=== PATIENT | female | born 1980 ===

== ENCOUNTER 2018-01-22 14:57 | Outpatient (CLI) | payer OTHER ==
[~2018-01-22] VITALS: Ht 170.2 cm; Wt 81.5 kg
[2018-01-22] MEDS ORDERED: CLR10 PO (17:11)
[2018-01-22] MEDS ORDERED: CITA20TA9 PO (17:11)
[2018-01-22] MEDS ORDERED: RANI150T85 PO (17:11)
[2018-01-22] MEDS ORDERED: PEDICHW44 (17:11)
[2018-01-22] MEDS ORDERED: FLUT0.15 NAE (17:11)
[2018-01-22 17:42] VITALS: Ht 170.2 cm; Wt 81.5 kg
== END 2018-01-22 16:50 | disposition home or self-care (01) ==
LOC: C.OPB 14:57 → MERGE 14:57 → C.LD 14:58 → C.OPB 16:50
PROVIDERS: ATTEND Obstetrics & Gynecology
DX: O40.9XX0 Polyhydramnios, unspecified trimester, not applicable or unspecified (principal); Z3A.00 Weeks of gestation of pregnancy not specified

== ENCOUNTER 2018-02-16 12:30 | Inpatient (IN) | payer OTHER ==
[~2018-02-16] VITALS: Ht 170.2 cm; Wt 85.0 kg
[~2018-02-16 12:30] MED LIST: CITA20TA9 PO; CLR10 PO; FLUT0.15 NAE; PEDICHW44; RANI150T85 PO
[2018-02-16] MEDS ORDERED: LACTATED RINGER'S 1000ML 500 ML IV ONE (12:56)
[2018-02-16 13:17] LABS: BASO % 0.3 %; BASO ABS # 0.03 K/uL (0-0.2); EOS % 1.5 %; EOS ABS # 0.15 K/uL (0-0.5); HEMATOCRIT 32.8 % (37-47); HEMOGLOBIN 11.6 g/dL (12.0-16.0); IG# 0.08 K/uL (0.00-0.02); LYMPH % 11.8 %; LYMPH ABS # 1.19 K/uL (1.2-3.4); MEAN CORPUSCULAR HEMOGLOBIN 30.8 pg (25-34); MEAN CORPUSCULAR HGB CONC 35.4 g/dl (32-36); MEAN PLATELET VOLUME 10.3 fL (7.4-10.4); MONO % 3.5 %; MONO ABS # 0.35 K/uL (0.11-0.59); NEUT % 82.1 %; NEUT ABS # 8.26 K/uL (1.4-6.5); PLATELET COUNT 240 K/uL (130-400); RED CELL DISTRIBUTION WIDTH CV 14.1 % (11.5-14.5); WHITE BLOOD COUNT 10.06 K/uL (4.8-10.8)
[2018-02-16] MEDS ORDERED: LACTATED RINGER'S 1000ML 500 ML IV PRN ×2 (13:52→23:31)
[2018-02-16] MEDS ORDERED: OXYTOCIN 30 UNITS/500ML NSS IV PRN (14:00)
[2018-02-16 14:14] VITALS: Ht 170.2 cm; Wt 85.0 kg
[2018-02-16 14:22] LABS: HEMATOCRIT 32.9 % (37-47); HEMOGLOBIN 11.1 g/dL (12.0-16.0); MEAN CELL VOLUME 87.5 fL (80-100); MEAN CORPUSCULAR HEMOGLOBIN 29.5 pg (25-34); MEAN CORPUSCULAR HGB CONC 33.7 g/dl (32-36); MEAN PLATELET VOLUME 10.4 fL (7.4-10.4); PLATELET COUNT 247 K/uL (130-400); RED CELL DISTRIBUTION WIDTH CV 14.2 % (11.5-14.5); RED CELL DISTRIBUTION WIDTH SD 45.5 fL (36.4-46.3); WHITE BLOOD COUNT 9.29 K/uL (4.8-10.8)
[2018-02-16] MEDS ORDERED: PENICILLIN G POTASSIUM IV 3 MU in DEXTROSE 5% 100ML 100 ML IV PRN (14:30)
--- NOTE | 2018-02-16 14:41 | HISTORY & PHYSICAL EXAMINATION ---
DATE OF ADMISSION: 02/16/2018 LABOR AND DELIVERY ADMISSION NOTE CHIEF COMPLAINT: Sent from office for nonreactive NST and heart rate deceleration. HISTORY OF PRESENT ILLNESS: The patient is a 37-year-old G1, P0 at 39 weeks and 1 day of gestation, whose has been complicated by polyhydramnios and abnormal echocardiogram with ductal flow turbulence and possible mild narrowing of distal transverse aorta. She saw MFM and pediatric nephrologist and plan was made for IOL by [facility]. Peds cardiology was okay for induction/ delivery of the baby here at [facility]. She has been coming to the office for NST's 2 times a week and RUSLAN once a week. Her RUSLAN has been on the higher range between 27 and 30 and her NSTs have been reactive. Today, she presented to the office for a scheduled NST and RUSLAN. Her RUSLAN dropped from 28 cm last week to 18cm this past Tuesday on February 13 and today 13 cm. She was placed on the NST. NST showed a nonreactive heart rate with 1 variable deceleration. She then was sent to ultrasound department, a BPP was done with an 8/8 score, but photographic reproduction technician showed heart rate decelerations during performing ultrasound, and I was not notified and recommended to come to labor and delivery for prolonged NST. She denies leakage of fluid. She does not remember leaking recently. She had speculum exam in the office. Her Nitrazine paper testing was negative. AmniSure testing was negative and there was no ferning on the slide, unlikely that she was leaking. She was sent here for prolonged NST. She was placed on the monitor. heart rate started with a baseline of 150 with minimal to moderate variability and then she had a good acceleration. She then had a 3 minute contraction and a deceleration from 160-120s, 130s for about 2 minutes, it recovered. heart rate became to be tachycardic at 160s to 170s with minimal variability and then we started IV fluid hydration. The variability came back, she has now moderate variability with accelerations and very short lasting viable decel. Discussed with the patient that baby is full-term and with this heart rate decelerations, we recommended to do another testing for the wellbeing, which is called oxytocin challenge test. If the baby passes oxytocin challenge test with 3 contractions in 10 min and no decelerations, then to be continued with induction. If baby fails the oxytocin challenge test with recurrent decelerations, then recommend expedited delivery with . The patient understands and agrees with plan. The patient has no complaints today. Denies contractions, leakage of fluid, or vaginal bleeding. She reports good movements. She denies fever, chills, chest pain, shortness of breath, headache, change in her vision, nausea, vomiting or leg pain. PAST MEDICAL HISTORY: As above and vitamin D deficiency, depression. Medication exposure during her . PAST SURGICAL HISTORY: Dental surgery. MEDICATIONS: vitamins, Celexa 20 mg daily, Claritin 10 mg daily, Flonase nasal spray as needed, albuterol inhaler as needed and Zantac 150 daily. GYNECOLOGIC HISTORY: The patient denies any history of STDs including Chlamydia, gonorrhea, herpes; this is her first . 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 She lives with her . She does not smoke, drink alcohol nor use drugs. LABORATORY DATA: Her chlamydia and gonorrhea cultures were negative. Blood type is A positive. H&H was 13/40. Varicella immune, rubella immune, hepatitis C antibody negative, hepatitis B surface antigen negative, RPR nonreactive, HIV nonreactive and her Ethel testing with low risk. Her 1-hour Glucola was negative and 3-hour OGGT were negative and her GBS culture was positive on 01/24/2018. PHYSICAL EXAMINATION: GENERAL: The patient is alert, oriented x3, not in acute distress. She is comfortable. VITAL SIGNS: Blood pressure is 126/79, heart rate 83, respirations 20, temperature 36.7. CARDIOVASCULAR SYSTEM: S1, S2, RRR. LUNGS: Clear to auscultation bilaterally. ABDOMEN: Soft, gravid, nontender. EXTREMITIES: Nontender, no edema. PELVIC: Cervix is 1 cm dilated, 30% effaced, minus 3. scalp stimulation was done with about 10 bpm acceleration in the heart rate. ASSESSMENT AND PLAN: The patient is a 37-year-old G1, P0 at 39 weeks and 1 day of gestation by last menstrual period as well as first trimester ultrasound and polyhydramnios since 29 weeks and GBS positive. Questionable mild heart defect followed by Dr. Dela Cruz. Nonreactive non-stress test with decelerations in the office and here today, recommended oxytocin challenge test and induction of labor if OCT is negative. The patient understands induction may take a day or two. If the baby fails the test, she may need emergency section. According to the pediatric nephrologist, Dr. Dela Cruz, the patient may be delivered here and post- echocardiogram can be done in 24 hours. I informed the training project manager operation research analyst, Dr. Rodriguez today and he is aware of. Plan is to admit, start IV fluids and low dose oxytocin for oxytocin challenge test and then induction of labor if OCT is negative as above Continuously monitor. Patient understands and agrees with plan All questions were answered. FLORA
[2018-02-16] MEDS ORDERED: PENICILLIN G POTASSIUM IV 6 MU in DEXTROSE 5% 250ML 250 ML IV ONE (14:45)
[2018-02-16] MEDS: LACTATED RINGER'S 1000ML 1,000 ML IV SCH ×2 (15:06→17:15)
[2018-02-16] MEDS ORDERED: LACTATED RINGER'S 1000ML 1,000 ML IV ONE (20:55)
[2018-02-16] MEDS ORDERED: CITRIC ACID/SODIUM CITRATE 15 ML UDC PO ONE (21:00)
[2018-02-16] MEDS ORDERED: CEFAZOLIN IV 2,000 MG in SYRINGE 0 ML IV STA (21:04)
[2018-02-16] MEDS ORDERED: MoRPHine SULFATE PF 1 MG/ML 10 ML AMP/VIAL ONE (21:56)
[2018-02-16] MEDS ORDERED: FENTANYL CITRATE INJ 50 MCG/1 ML 2 ML VIAL ONE (21:56)
[2018-02-16] MEDS ORDERED: ONDANSETRON INJ 2 MG/ML 2 ML VIAL ONE (22:36)
[2018-02-16] MEDS ORDERED: OXYTOCIN INJ 10 UNITS/ML VIAL ONE ×3 (22:36→22:52)
[2018-02-16] MEDS ORDERED: D5W AND LACTATED RINGERS 1,000 ML IV SCH (23:21)
[2018-02-16] MEDS ORDERED: OXYTOCIN INJ 20 UNITS in D5W AND LACTATED RINGERS 1,000 ML IV SCH (23:21)
--- NOTE | 2018-02-16 23:21 | [facility] Post Operative Brief Note ---
Immediate Operative Summary Operative Date Feb 16, 2018. Pre-Operative Diagnosis IUP at 39w1d Non reactive NST Recurrent heart rate decelerations. Meconium stained fluid. Remote from delivery. Post-Operative Diagnosis Same as above. Procedure(s) Performed Primary caesarean section. Delivery of live female child at [address]. Surgeon Dr[address] Goldsmith Jig And Fixture Builder Apprentice Surgeon(s) Nayeli Alcazar RN Estimated Blood Loss 600cc Findings Consistent with Post-Op Diagnosis Fluids (cc crystalloids) 1500 ML LR Specimens A: Placenta-exam B: Cord gasses Drains RODRIGUEZ 100 ML Anesthesia Type Spinal Complication(s) none Disposition Disposition: L&D
[2018-02-16] MEDS ORDERED: LANOLIN OINT EXT PRN (23:30)
[2018-02-16] MEDS ORDERED: HYDROCORTISONE ACETATE 25 MG SUPP PR PRN (23:30)
[2018-02-16] MEDS ORDERED: BENZOCAINE 20% AER SPR 82.5 GM CAN EXT PRN (23:30)
[2018-02-16] MEDS ORDERED: SENNA 8.6 MG TAB PO PRN (23:30)
[2018-02-16] MEDS ORDERED: MAGNESIUM HYDROXIDE SUSP 30 ML UDC PO PRN (23:30)
[2018-02-16] MEDS ORDERED: SUPERCREAM 0.870 % 15GM JAR EXT PRN (23:30)
[2018-02-16] MEDS ORDERED: NALOXONE HCL INJ 0.08 MG in SYRINGE 1.8 ML IV PRN (23:31)
[2018-02-16] MEDS ORDERED: NALOXONE HCL INJ 1 MG in SODIUM CHLORIDE 0.9% 1000ML 1,000 ML IV PRN (23:31)
[2018-02-16] MEDS ORDERED: SODIUM CHLORIDE 0.9% 1000ML 1,000 ML IV PRN (23:31)
--- NOTE | 2018-02-16 23:35 | Anesthesiology Progress Note ---
Anesthesia Post Op Note Date & Time Feb 16, 2018 at 23:35 Notes Mental Status: alert / awake / arousable, participated in evaluation Pt Amnestic to Procedure: Yes Nausea / Vomiting: adequately controlled Pain: adequately controlled Airway Patency, RR, SpO2: stable & adequate BP & HR: stable & adequate Hydration State: stable & adequate Neuraxial Anesthesia: was administered, sensory block is resolving Anesthetic Complications: no major complications apparent
[2018-02-16] MEDS ORDERED: NALBUPHINE HCL INJ 10 MG/ML AMP IV PRN (23:45)
[2018-02-16] MEDS ORDERED: DiphenhydrAMINE HCL 50 MG/ML VIAL IV PRN (23:45)
[2018-02-16] MEDS ORDERED: ONDANSETRON INJ 2 MG/ML 2 ML VIAL IV PRN (23:45)
[2018-02-16] MEDS ORDERED: MoRPHine SULFATE 2 MG/ML CARP IV PRN (23:45)
[2018-02-16] MEDS ORDERED: MoRPHine SULFATE PF 1 MG/ML 10 ML AMP/VIAL INT SPINAL PRN (23:45)
[2018-02-16] MEDS ORDERED: NALOXONE HCL 0.4 MG/1 ML VIAL/CARP IV PRN (23:45)
[2018-02-16] MEDS ORDERED: NO NARCOTICS OR SEDATIVES SCH (23:45)
--- NOTE | 2018-02-16 23:51 | OPERATIVE REPORT ---
DATE OF OPERATION: 02/16/2018 PREOPERATIVE DIAGNOSES: 1. The patient is a 37-year-old G1, P0 at 39 weeks and 1 day of gestation. 2. Nonreactive NST with heart rate deceleration, intolerance to labor with recurrent decelerations. 3. Category 3 strip, remote from delivery. 4. Dark meconium stained amniotic fluid. POSTOPERATIVE DIAGNOSIS: Same. PROCEDURE: Primary low transverse with Pfannenstiel skin incision. SURGEON: Gissel Norris MD. STEAM FRAME OPERATOR: Nayeli Alcazar RN. She is a labor and delivery nurse. ESTIMATED BLOOD LOSS: 600. FLUIDS: 1500 mL of lactated ringer. DRAINS: Urine 100 mL of urine in the [place] catheter. ANESTHESIA: Spinal, Dr. Greer. COMPLICATIONS: None. SPECIMENS: Placenta and cord gases. FINDINGS: Baby was in cephalic presentation not engaged to the pelvis, delivered at 22:31 p.m., viable female , weight 3925 grams. Apgars 5, 8 and 9 at one, five and ten minutes in order. Maternal findings; normal uterus, fallopian tubes and ovaries. Meconium stained placenta and amniotic fluid. DESCRIPTION OF PROCEDURE: The patient was taken to the operating room where spinal anesthesia was given without difficulty. She was placed in dorsal supine position with a leftward tilt. She was prepared and draped in usual sterile fashion. A Pfannenstiel skin incision was made and carried through to the underlying layer of fascia with the Bovie. The fascia was incised in the midline and incision extended laterally with the help of Morel scissors. Lower aspect of the fascial incision was grasped with 2 Aria clamps, elevated, underlying rectus muscles were dissected off sharply with Metzenbaum scissors and upper aspect of the facial incision was grasped with 2 Aria clamps, elevated, underlying rectus muscles were dissected off sharply with Morel scissors. Rectus muscles were in the midline and the peritoneum was identified, entered bluntly with fingers. Peritoneal incision was extended superiorly and inferiorly. I attest to the content of the Intraoperative Record and any orders documented therein. Any exception s are noted below.
[2018-02-17] VITALS (20 sets, daily range): BP systolic 107–134; BP diastolic 71–86; PULSE 70–87; TEMP 36.6–36.8; O2SAT 95–99
--- NOTE | 2018-02-17 00:10 | OPERATIVE REPORT ---
DATE OF OPERATION: 02/16/2018 PREOPERATIVE DIAGNOSES: The patient is a 37-year-old G1, P0 at 39 weeks and 1 day of gestation who was sent from office for nonreactive NST and heart rate deceleration. Induction of labor at term. Category II heart strip Dark meconium stained amniotic fluid Remote from delivery. POSTOPERATIVE DIAGNOSES: Same. PROCEDURE: Primary low transverse with Pfannenstiel skin incision. SURGEON: Gissel Norris MD. CLERICAL SECRETARY: Nayeli Alcazar RN, Labor and delivery nurse. ESTIMATED BLOOD LOSS: 600. FLUIDS: 1500 mL of lactated ringer. DRAINS: [place] drained 100 mL of urine. COMPLICATIONS: None. ANESTHESIA: Spinal, Dr. Mckeon. FINDINGS: Baby was a viable female , in cephalic presentation, delivered at 22:31 p.m. Weight 3925 grams. Apgars 5, 8, 9 at one, five and ten minutes respectively. Dark meconium stained amniotic fluid and placenta. Maternal findings; normal uterus, fallopian tubes and ovaries. DESCRIPTION OF PROCEDURE: The patient was taken to the operating room where spinal anesthesia was given without difficulty. She was placed in dorsal supine position with a leftward tilt. She was prepared and draped in usual sterile fashion. A Pfannenstiel skin incision was made, carried through to the underlying layer of fascia with the Bovie. The fascia was incised in the midline and incision extended laterally with the help of Morel scissors. Lower aspect of the fascial incision was grasped with 2 Aria clamps, elevated, the underlying rectus muscles and dissected sharply with Morel scissors. Upper aspect of the fascial incision was then grasped with 2 Aria clamps, elevated, underlying rectus muscles were dissected off sharply with Morel scissors. Rectus muscles were in the midline. Peritoneum was identified, entered bluntly with the fingers and peritoneal incision was extended superiorly and inferiorly with good visualization of the bladder. Bladder blade was inserted. Vesicouterine peritoneum was identified, grasped with pickups, entered sharply with Metzenbaum scissors. Bladder flap was created digitally and bladder blade was reinserted. Lower uterine segment was incised in transverse fashion, incision extended laterally with the help of fingers. Membranes were ruptured and dark meconium stained amniotic fluid was obtained. The baby's head was ballottable not engaged to the pelvis. It was brought to the incision and delivered without difficulty. Shoulders were delivered with minimal traction. Mouth and nose were suctioned. Cord was clamped x2 and cut. Baby was handed to the waiting cyber special agent. The cord blood was collected for donation per patient request and a piece of cord was sent for cord blood gases. The placenta was and delivered manually as intact and complete. Uterus was exteriorized, cleared of all clots and debris. Incision was repaired with 0 Vicryl in a running locked fashion and second imbricating layer was placed with a 0 Vicryl in a running locked fashion. Excellent hemostasis was achieved. The cul-de-sac was irrigated with warm normal saline and suctioned. Uterus was returned to the abdomen and pelvis was irrigated with warm normal saline and suctioned. There was a small oozing in the middle of the incision which was controlled with [id number] stitch x2 and then it was irrigated again and suctioned. Excellent hemostasis was achieved. Parietal peritoneum was reapproximated with 3-0 Vicryl in a running fashion. Rectus muscles were reapproximated with the same suture in a running fashion. The rectal fascia was closed with 0 Vicryl in a running fashion. Subcuticular fat tissue was brought together with 3-0 Vicryl in a running fashion. Skin was closed with 4-0 Monocryl in a subcuticular fashion and the incision was covered with Steri-Strips. The patient tolerated the procedure well. Sponge, lap, needle count was correct x3. No complications happened. I was present during whole procedure and patient received 2 grams of cefazolin before surgery. She was taken to recovery room in stable condition. I attest to the content of the Intraoperative Record and any orders documented therein. Any exceptions are noted below. ROSEANND
[2018-02-17] MEDS: ACETAMINOPHEN IV 100 ML IV PRN ×2 (00:36→10:04)
[2018-02-17] MEDS: OXYTOCIN INJ 20 UNITS in LACTATED RINGER'S 1000ML 1,000 ML IV SCH ×2 (03:54→16:10)
[2018-02-17 06:27] LABS: HEMOGLOBIN 9.2 g/dL (12.0-16.0); MEAN CELL VOLUME 87.9 fL (80-100); MEAN CORPUSCULAR HGB CONC 34.1 g/dl (32-36); MEAN PLATELET VOLUME 10.1 fL (7.4-10.4); PLATELET COUNT 205 K/uL (130-400); RED CELL DISTRIBUTION WIDTH CV 14.1 % (11.5-14.5); RED CELL DISTRIBUTION WIDTH SD 45.1 fL (36.4-46.3); WHITE BLOOD COUNT 12.45 K/uL (4.8-10.8)
[2018-02-17 07:03] LABS: BASO % 0.2 %; BASO ABS # 0.03 K/uL (0-0.2); EOS % 0.4 %; EOS ABS # 0.05 K/uL (0-0.5); IG# 0.05 K/uL (0.00-0.02); LYMPH % 8.3 %; LYMPH ABS # 1.03 K/uL (1.2-3.4); MONO % 4.8 %; NEUT % 85.9 %; NEUT ABS # 10.69 K/uL (1.4-6.5)
[2018-02-17] MEDS: DOCUSATE SODIUM 100 MG CAP PO SCH ×2 (08:39→19:54)
[2018-02-17] MEDS: PRENATAL VITAMIN TAB PO SCH (08:40)
[2018-02-17] MEDS: SIMETHICONE 80 MG CHEW PO SCH ×4 (08:40→19:54)
[2018-02-17] MEDS: FERROUS SULFATE 325 MG TAB PO SCH (08:40)
--- NOTE | 2018-02-17 09:28 | OB/GYN Progress Note ---
THORACIC MEDICINE PHYSICIAN Progress Note Date of Service Feb 17, 2018. Subjective conversation w/ patient, physical exam Ambulation: limited ambulation Voiding: dillon catheter in place Passing Gas: No Diet Tolerance: Clear Liquids Lochia: Small Feeding Type: Breast Feeding Pain: 2/10 Notes: Doing well, no concerns. Pain well controlled. Tolerating liquids, -flatus, - BM. Dillon in place draining 400 cc clear urine. Incision dressing removed and is c/d/i. Objective Vital Signs Date Time Temp Pulse Resp B/P (MAP) Pulse Ox O2 Delivery O2 Flow Rate FiO2 02/17/18 09:00 20 98 02/17/18 08:00 18 99 02/17/18 08:00 36.7 76 18 127/83 (98) 99 Room Air 02/17/18 08:00 99 Room Air 02/17/18 07:00 16 95 02/17/18 06:30 16 98 02/17/18 05:30 16 97 02/17/18 04:30 16 98 02/17/18 03:50 36.7 83 16 130/84 (99) 96 Room Air 02/17/18 03:30 16 98 02/17/18 02:30 16 98 02/17/18 02:20 36.6 76 18 129/84 (99) 98 Room Air 02/17/18 02:20 98 Room Air Physical Exam General Appearance: WELL-APPEARING Respiratory/Chest: chest non-tender, lungs clear Cardiovascular: regular rate, rhythm Abdomen: normal bowel sounds, soft Fundus: Firm Incision Description: Clean, Dry & Intact Extremities: normal range of motion, non-tender, no calf tenderness Laboratory Results Last 24 Hours Test 02/16/18 13:02 02/16/18 14:02 02/17/18 06:11 White Blood Count 10.06 K/uL 9.29 K/uL 12.45 K/uL Red Blood Count 3.77 M/uL 3.76 M/uL 3.07 M/uL Hemoglobin 11.6 g/dL 11.1 g/dL 9.2 g/dL Hematocrit 32.8 % 32.9 % 27.0 % Mean Corpuscular Volume 87.0 fL 87.5 fL 87.9 fL Mean Corpuscular Hemoglobin 30.8 pg 29.5 pg 30.0 pg Mean Corpuscular Hemoglobin Concent 35.4 g/dl 33.7 g/dl 34.1 g/dl Platelet Count 240 K/uL 247 K/uL 205 K/uL Mean Platelet Volume 10.3 fL 10.4 fL 10.1 fL Neutrophils (%) (Auto) 82.1 % 85.9 % Lymphocytes (%) (Auto) 11.8 % 8.3 % Monocytes (%) (Auto) 3.5 % 4.8 % Eosinophils (%) (Auto) 1.5 % 0.4 % Basophils (%) (Auto) 0.3 % 0.2 % Neutrophils # (Auto) 8.26 K/uL 10.69 K/uL Lymphocytes # (Auto) 1.19 K/uL 1.03 K/uL Monocytes # (Auto) 0.35 K/uL 0.60 K/uL Eosinophils # (Auto) 0.15 K/uL 0.05 K/uL Basophils # (Auto) 0.03 K/uL 0.03 K/uL RDW Standard Deviation 45.0 fL 45.5 fL 45.1 fL RDW Coefficient of Variation 14.1 % 14.2 % 14.1 % Immature Granulocyte % (Auto) 0.8 % 0.4 % Immature Granulocyte # (Auto) 0.08 K/uL 0.05 K/uL Assessment and Plan Post-Op Day Number: 1 Continue Routine Care: -D/C santana today -Advance diet and activity as tolerated. -Continue routine postop care.
[2018-02-17] MEDS: LORATADINE 10 MG TAB PO SCH (15:05)
[2018-02-17] MEDS: CITALOPRAM 20 MG TAB PO SCH (15:05)
[2018-02-17] MEDS ORDERED: OXYCODONE/ACETAMINOPHEN 5-325 TAB PO PRN (16:10)
[2018-02-17] MEDS ORDERED: DC INTRASPINAL MORPHINE SCH (16:10)
[2018-02-17] MEDS ORDERED: MEPERIDINE HCL 50 MG/ML CARP IV PRN ×2 (16:10)
[2018-02-17] MEDS ORDERED: ONDANSETRON INJ 2 MG/ML 2 ML VIAL IV PRN (16:10)
[2018-02-17] MEDS ORDERED: DiphenhydrAMINE HCL 50 MG/ML VIAL IV PRN (16:10)
[2018-02-17] MEDS ORDERED: PROMETHAZINE HCL INJ 25 MG in SODIUM CHLORIDE 0.9% 50ML 50 ML IV PRN (16:10)
[2018-02-17] MEDS: OXYCODONE/ACETAMINOPHEN 5-325 TAB PO PRN ×2 (16:47→22:38)
[2018-02-17] MEDS ORDERED: BISACODYL 5 MG TABEC PO ONE (22:00)
[2018-02-18] MEDS: OXYCODONE/ACETAMINOPHEN 5-325 TAB PO PRN ×3 (06:15→22:14)
[2018-02-18 06:19] LABS: HEMATOCRIT 25.8 % (37-47); HEMOGLOBIN 8.9 g/dL (12.0-16.0)
[2018-02-18 08:20] VITALS: BP 121/79; PULSE 86; TEMP 36.8; O2SAT 95
[2018-02-18] MEDS: FERROUS SULFATE 325 MG TAB PO SCH (08:37)
[2018-02-18] MEDS: DOCUSATE SODIUM 100 MG CAP PO SCH ×2 (08:37→19:51)
[2018-02-18] MEDS: SIMETHICONE 80 MG CHEW PO SCH ×4 (08:38→19:51)
[2018-02-18] MEDS: PRENATAL VITAMIN TAB PO SCH (08:38)
[2018-02-18] MEDS: CITALOPRAM 20 MG TAB PO SCH (08:39)
[2018-02-18] MEDS: RANITIDINE HCL 150 MG TAB PO SCH (08:39)
[2018-02-18] MEDS ORDERED: DIPHTHERIA/TETANUS/PERTUSSIS 0.5 ML SYR/VIAL IM. ONE (09:00)
[2018-02-18] MEDS ORDERED: MEASLES, MUMPS & RUBELLA VIRUS VIAL SQ. ONE (09:00)
--- NOTE | 2018-02-18 10:32 | Surgery Progress Note ---
Surgery Progress Note Date of Service Feb 18, 2018. Subjective Post OP Day: 2 + chest pain, + ambulating, + flatus, + pain controlled Objective Vital Signs: Date Time Temp Pulse Resp B/P (MAP) Pulse Ox O2 Delivery O2 Flow Rate FiO2 02/18/18 08:20 95 Room Air 02/18/18 08:20 36.8 86 18 121/79 (93) 95 Room Air 02/17/18 23:05 98 Room Air 02/17/18 23:05 36.8 87 20 134/86 (102) 98 Room Air 02/17/18 20:00 36.8 86 18 114/75 (88) 96 Room Air 02/17/18 16:00 98 Room Air 02/17/18 16:00 16 98 02/17/18 16:00 36.7 70 20 107/71 (83) 98 Room Air 02/17/18 15:00 20 98 02/17/18 14:00 20 98 02/17/18 13:00 18 98 02/17/18 12:00 18 98 02/17/18 11:15 36.8 74 16 125/80 (95) 98 Room Air 02/17/18 11:00 16 98 General Appearance: no apparent distress Abdomen: non tender, non distended Incision(s): clean, dry Extremities: non-tender, normal inspection, no pedal edema Laboratory Results: Results Past 24 Hours Test 02/18/18 05:58 Range/Units Hemoglobin 8.9 12.0-16.0 g/dL Hematocrit 25.8 37-47 % Assessment & Plan regular diet tent D/C in AM
[2018-02-18 17:05] VITALS: BP 114/74; PULSE 81; TEMP 36.9; O2SAT 96
[2018-02-18 19:50] VITALS: BP 122/83; PULSE 84; TEMP 36.9; O2SAT 99
[2018-02-18 23:30] VITALS: BP 130/85; PULSE 84; TEMP 36.8; O2SAT 95
[2018-02-18] MEDS ORDERED: BISACODYL 10 MG SUPP PR PRN (23:30)
[2018-02-19] MEDS: OXYCODONE/ACETAMINOPHEN 5-325 TAB PO PRN ×3 (03:24→14:17)
[2018-02-19 07:30] VITALS: BP 131/83; PULSE 88; TEMP 36.8; O2SAT 96
[2018-02-19] MEDS: PRENATAL VITAMIN TAB PO SCH (07:57)
[2018-02-19] MEDS: RANITIDINE HCL 150 MG TAB PO SCH (07:57)
[2018-02-19] MEDS: FERROUS SULFATE 325 MG TAB PO SCH (07:58)
[2018-02-19] MEDS: SIMETHICONE 80 MG CHEW PO SCH ×2 (07:58→12:29)
[2018-02-19] MEDS: DOCUSATE SODIUM 100 MG CAP PO SCH (07:58)
[2018-02-19] MEDS: LORATADINE 10 MG TAB PO SCH (07:58)
[2018-02-19] MEDS: CITALOPRAM 20 MG TAB PO SCH (07:58)
[2018-02-19] MEDS ORDERED: OXYC-57 PO (09:19)
--- NOTE | 2018-02-19 09:21 | Discharge Instructions ---
Discharge Instructions Date of Service Feb 19, 2018. Admission Reason for Admission: Extended Monitoring Discharge Discharge Diagnosis / Problem: term delivered Discharge Goals Goal(s): Routine recovery after Activity Recommendations Activity Limitations: as noted below Lifting Limitations: no more than 10 pounds Exercise/Sports Limitations: gradually increase as tolerated May Resume Sexual Activity: after follow-up appointment Shower/Bathe: no limitations Driving or Machine Use: resume 3 days after discharge . Instructions / Follow-Up Instructions / Follow-Up ACTIVITY RECOMMENDATIONS: * Gradual return to full activity over the next 2-3 weeks. * No lifting - nothing heavier than baby over the next 2-3 weeks. * Do not engage in vigorous exercise, sexual activity or sports until cleared by your physician. * Do not drive or operate any motorized equipment until cleared by your physician. * You may shower/bathe daily. BREAST CARE: If you are not breast feeding: * Wear a supportive bra 24 hours a day for one to two weeks. * Avoid stimulating your breasts and nipples as much as possible during the first few weeks after delivery. * When taking a shower, have the warm water hit your back, not breasts. * When your breasts feel full, apply ice packs. Usually three to four times a day helps ease the discomfort. * Take a mild pain medication (Tylenol/Motrin) when you are uncomfortable. If breast feeding: * Use breast milk to lubricate nipples. Lansinoh cream may be used for sore nipples. You do not need to remove cream prior to breast feeding. If using a different brand of cream, check the label for directions regarding removal of cream prior to nursing. * Wear a supportive bra. * If having problems with breasts or breast feeding, call a solutions delivery consultant or your health care provider. OVER THE COUNTER MEDICATION: * For discomfort or pain, you may use Acetaminophen (Tylenol), Ibuprofen (Advil ), or Naproxen (Aleve) following the package directions. * For constipation you may use Colace following the package directions. SPECIAL CARE INSTRUCTIONS: When you are discharged from the hospital, it is important for you to follow the instructions listed below: * During the first week at home, you should be able to care for yourself and your baby. In addition, the usual light household activities are encouraged. * Limit your activities to the way you feel. Do not try to clean the house or move furniture. Be sensible. * If you actively engage in sports and have done so up until the time of your delivery, you may resume these activities as soon as you feel able. This may take up to one month or even longer. Use good judgment. * Continue to take your vitamins for at least six weeks after the of your baby. * Your diet need not be limited unless you were on a special diet before your delivery. Breast-feeding mothers need around 2500 calories per day and at least 64-80 ounces of fluid per day (8 to 10 glasses). * You should eat foods from the four major food groups. Crash diets or fad diets are to be avoided. Eating lean meats, fresh fruits and vegetables, low-fat dairy products, high fiber foods and a regular exercise program, will help you get back to your pre- weight without putting your health at risk. * Constipation is sometimes a problem after delivery. Take a mild laxative as needed. If breast feeding, Milk of Magnesia is acceptable to use. You may use a suppository or Fleets enema if no episiotomy. * A daily shower or tub bath is suggested. Be sure to thoroughly and gently dry the perineum. * A bloody vaginal discharge will usually continue until around four weeks post . A small amount of bleeding may continue for as long as six weeks. Vaginal discharge changes from the bright red bleeding after delivery to pink then brownish and finally yellowish-pink before becoming white and disappearing. * Bleeding may increase with activity. Your first period may come in 4-8 weeks. If you are breast feeding, your period may be delayed even longer. * Hugo (sex) can begin whenever both you and your partner feel comfortable and do not have any form of genital infection. It is recommended that you wait at least six weeks for internal and external healing to occur. If you have questions, please talk to your health care practitioner. A condom should be used to prevent infection and . * Foreplay, gentle intercourse and lubrication is very important the first several times to prevent pain. A water-based lubricant such as K-Y jelly or Astroglide may be used. * Tampons and/or Douching should be avoided until after six weeks check-up. * If you have RH negative blood and your baby is RH positive, you will receive RHOGAM by injection prior to discharge. The nurse will give you a card to keep with you that has the date and place that you received RHOGAM after delivery. * During your care, you had a Rubella screen done to check for the presence of rubella antibodies in your blood. If your test was negative, you will receive a Rubella vaccine prior to discharge. This vaccine may cause a fever, soreness at the injection site and flu-like symptoms. If these symptoms persist, notify your health care practitioner. is not advised for three months after a Rubella vaccine. * Verbalizes understanding of car seat law as reviewed with patient nursing. * Car Seat hand-out given and reviewed with patient by nursing. * Shaken baby information reviewed with patient by nursing. Call you doctor if: * Heavy bleeding (saturating several pads an hour) or passing clots the size of your fist. * A fever >101 degrees F (38.3 degrees C) on two occasions four hours apart and /or chills. * Unusual pain in the pelvic or vaginal areas. Pain should improve each day . * Call the doctor for any increased redness, drainage or swelling around the incision and any pain unrelieved by prescribed pain medication. * Any signs or symptoms of phlebitis (possible blood clots forming in the veins ): leg pain, warm, red or swollen area on leg. * "Baby Blues" lasting longer than two weeks. If you have any questions or concerns, call your health care practitioner at . FOLLOW-UP VISIT: * Incision check (staple removal) in 1 week. Please call doctor's office at to set up appointment. * Please call the office at to schedule a 6 week examination. It is important you keep this appointment. * It is important for you to make arrangements for either yearly or twice yearly check-ups thereafter. Current Hospital Diet Patient's current hospital diet: Regular OB Diet Discharge Diet Recommended Diet: Regular OB Diet Fluid Restriction: None Procedures Procedures Performed: Primary caesarean section. Delivery of live female child at 2231. Pending Studies Studies pending at discharge: no Medical Emergencies . Who to Call and When: Medical Emergencies: If at any time you feel your situation is an emergency, please call 911 immediately. . Non-Emergent Contact Non-Emergency issues call your: Primary Care Provider . . "Provider Documentation" section prepared by Carrillo Waterman. .
--- NOTE | 2018-02-19 09:28 | Surgery Progress Note ---
Surgery Progress Note Date of Service Feb 19, 2018. Subjective Post OP Day: 3 + feeling well, + ambulating, + flatus, + pain controlled, + diet Objective Vital Signs: Date Time Temp Pulse Resp B/P (MAP) Pulse Ox O2 Delivery O2 Flow Rate FiO2 02/19/18 07:30 96 Room Air 02/19/18 07:30 36.8 88 18 131/83 (99) 96 Room Air 02/18/18 23:30 36.8 84 16 130/85 (100) 95 Room Air 02/18/18 23:30 95 Room Air 02/18/18 19:50 36.9 84 18 122/83 (96) 99 Room Air 02/18/18 17:05 96 Room Air 02/18/18 17:05 36.9 81 18 114/74 (87) 96 Room Air General Appearance: no apparent distress Abdomen: non tender, non distended, soft Incision(s): clean, dry, intact Extremities: non-tender, normal inspection, no pedal edema, no calf tenderness Assessment & Plan D/C today follow up in 1 week in office regular diet D/C today
[2018-02-19 10:02] VITALS: BP_DIAS 83; PULSE 88; TEMP 36.8
--- NOTE | 2018-02-20 08:10 | DISCHARGE SUMMARY ---
DETAILS OF ADMISSION: The patient is a 37-year-old G1, P0 at 39 weeks and 1 day of gestation whose had been complicated by polyhydramnios and abnormal echocardiogram. She was having NSTs 2 times a week with a repeat RUSLAN. She was in the office on 02/16/2018 and her NST was not reactive, heart rate had a deceleration and she was sent to the hospital for prolonged monitoring. She was on the monitor and baby had occasional variable, some of which with late component, decelerations. After long discussion with her and decided to have Oxytocin challenge test. the baby tolerated the Pitocin well and continued with Pitocin for induction of labor. She then had SROM with a dark meconium stained fluid. heart rate was category 2, remote from delivery. Decision was made to proceed with expedited delivery with a . She had primary low transverse by myself on 02/16/2018. See dictated operative note for details. She delivered a viable female with no complications. On postop period, the patient did well. Vital signs stable, afebrile. Urine output was good. [place] was discontinued next day and she was ambulated, started regular diet. Her H&H was 9.2/27.0. On postop day #2, the patient was doing well, ambulating, tolerating a regular diet, passing gas, vital signs stable, afebrile. Physical exam was unremarkable. Incision was clean, dry and intact. Abdomen soft, nontender, distended. Her repeat H&H was 8.9/25.8. On postop day #3, the patient was doing well, ambulating, tolerating regular diet. Vital signs stable, afebrile. Incision was clean, dry and intact. Physical exam was unremarkable. She was discharged on postop day #[address] Waterman. Discharge instructions were given when to call, prescriptions were written for pain. The patient to be seen in a week for incision check. FLORA
== END 2018-02-19 14:30 | disposition home or self-care (01) | DRG 766 ==
LOC: C.OPB 12:30 → C.LD 12:30 → C.OPB 13:52 → C.OBG 02-17 02:14
PROVIDERS: ADMIT Obstetrics & Gynecology; ATTEND Obstetrics & Gynecology
PROC: 3E033VJ Introduction of Other Hormone into Peripheral Vein, Percutaneous Approach (ICD-10-PCS; 2018-02-16)
PROC: 10D00Z1 Extraction of Products of Conception, Low, Open Approach (ICD-10-PCS; principal; 2018-02-16 21:26)
DX: O76 Abnormality in fetal heart rate and rhythm complicating labor and delivery (principal); O77.0 Labor and delivery complicated by meconium in amniotic fluid; O99.820 Streptococcus B carrier state complicating pregnancy; O69.81X0 Labor and delivery complicated by cord around neck, without compression, not applicable or unspecified; O09.513 Supervision of elderly primigravida, third trimester; Z3A.39 39 weeks gestation of pregnancy; Z37.0 Single live birth

== ENCOUNTER 2019-11-17 03:59 | Inpatient (IN) ==
[2019-11-17] MEDS ORDERED: ACETAMINOPHEN 500 MG TAB PO STA (04:46)
[2019-11-17] MEDS ORDERED: SODIUM CHLORIDE 0.9% 1000ML 2,000 ML IV SCH (05:00)
[2019-11-17 05:40] LABS: Basophils # (auto) 0.02 K/uL (0-0.2); Basophils % (auto) 0.1 %; Eosinophils # (auto) 0.17 K/uL (0-0.5); Eosinophils % (auto) 0.9 %; Hematocrit (blood only) 35.2 % (37-47); Hemoglobin 11.5 g/dL (12.0-16.0); Immature Granulocytes # (auto) 0.07 K/uL (0.00-0.02); Immature Granulocytes % (auto) 0.4 %; Lymphocytes # (auto) 1.06 K/uL (1.2-3.4); Lymphocytes % (auto) 5.4 %; Mean Corpuscular Hemoglobin 31.6 pg (25-34); Mean Corpuscular Hgb Conc 32.7 g/dL (32-36); Mean Corpuscular Volume 96.7 fL (80-100); Mean Platelet Volume 8.7 fL (7.4-10.4); Monocytes # (auto) 1.01 K/uL (0.11-0.59); Monocytes % (auto) 5.1 %; Neutrophils # (auto) 17.47 K/uL (1.4-6.5); Neutrophils % (auto) 88.1 %; Platelet Count 372 K/uL (130-400); RDW Standard Deviation 56.1 fL (36.4-46.3); Red Blood Count 3.64 M/uL (4.2-5.4)
[2019-11-17] MEDS ORDERED: cefTRIAXone SODIUM 1,000 MG/50 ML BAG IV STA (05:56)
[2019-11-17 05:57] LABS: Albumin Level 3.6 gm/dl (3.4-5.0); BUN Creatinine Ratio 18.7 (10-20); Calcium 9.3 mg/dl (8.5-10.1); Creatinine Clr Calc Pharmacy 87.4 ml/min; Est GFR (African American) 101.5; Est GFR (Non-African American) 87.6; Potassium 3.1 mmol/L (3.5-5.1)
[2019-11-17 06:00] LABS: Bilirubin,Total 0.4 mg/dl (0.2-1); Globulin 3.5 gm/dl (2.5-4.0); Total Protein 7.1 gm/dl (6.4-8.2)
[2019-11-17 06:18] LABS: Influenza A virus by PCR Neg for Influ A (Neg); Influenza B virus by PCR Neg for Influ B (Neg)
[2019-11-17] MEDS ORDERED: POTASSIUM CHLORIDE 40 MEQ in SODIUM CHLORIDE 0.9% 1000ML 1,000 ML IV SCH (06:45)
--- NOTE | 2019-11-17 06:56 | XRay Report ---
XR chest 1V portable CLINICAL HISTORY: fever, cough COMPARISON STUDY: Chest CT October 29, 2019. FINDINGS: Lung volumes are normal. Lungs are clear. There is no pneumothorax or pleural effusion. Car diac size is normal. Mediastinal contours are normal. There is no evidence for pulmonary edema. Right internal jugular [id number] is in place. Bilateral chest wall surgical drains from mastectomies a re noted. IMPRESSION: No acute cardiopulmonary findings. ACT 112: Negative or not required by law. Electronically signed by: Jose Jules M.D. 11/17/2019 6:55 AM
--- NOTE | 2019-11-17 07:06 | CT Scan Report ---
CT OF THE CHEST WITHOUT IV CONTRAST CLINICAL HISTORY: Fever. Cough. Evaluate for pneumonia. Breast cancer. COMPARISON STUDY: PET/CT June 27, 2019. Chest CT November 08, 2019. CT DOSE: 413.44 mGy.cm TECHNIQUE: Axial images of the chest were obtained without IV contrast. Images were reviewed in the axial, sagittal, and coronal planes. IV contrast was not administered for this examination. Automat ed exposure control was utilized for the study. A dose lowering technique was utilized adhering to t he principles of ALARA. FINDINGS: A right internal jugular [id number] is in place. No enlarged axillary, mediastinal or h ilar lymph nodes are present. There are numerous small bilateral axillary lymph nodes. There are post operative findings from recent bilateral mastectomies with surgical drains in place. There is mild in filtration which is expected within the operative beds. There is no fluid collection. Upper abdomen i s unremarkable. Mild multifocal airspace opacities within the lungs are new since chest [facility] of [facility] 2018. These measure up to 1.5 cm within the right middle lobe. There is no cavitation. There is no pneumothorax or pleural effusion. Multiple small previously described pulmonary nodules remain un changed since PET/CT of June 27, 2019. IMPRESSION: 1. Scattered mild airspace opacities within the lungs which are new since chest CT November 08, 2019 and favor a mild infectious process. 2. Expected findings from recent bilateral mastectomies. No fluid collection. 3. No change in scattered tiny pulmonary nodules which are likely benign but can be assessed on subse quent exams to ensure stability. ACT 112: Negative or not required by law. Electronically signed by: Jose Jules M.D. 11/17/2019 7:05 AM
[2019-11-17 07:44] LABS: Appearance Urine Clear (Clear); Bilirubin Urine Negative (Negative); Blood Urine Negative (Negative); Color Urine Yellow; Glucose Urine UA Negative (Negative); Ketones Urine Negative (Negative); Leukocyte Esterase Urine Negative (Negative); Nitrite Urine Negative (Negative); Protein Urine Negative (Negative); Specific Gravity Urine 1.004 (1.000-1.030); Urobilinogen Urine Negative (Negative); pH Urine 6.5 (4.5-7.5)
--- NOTE | 2019-11-17 09:11 | History & Physical Report ---
Date of Service November 17, 2019 Assessment & Plan (1) Sepsis: -Admit to [facility] with telemetry -Patient presenting from home with reports of cough and fever -In the ED, patient is afebrile with stable BP. WBC 19.8K, HR 110s. Lactate 2.0. -CT chest showing mild opacities consistent with infectious process. -S/P ceftriaxone in ED; given immunocompromised state with recent chemotherapy, will cover broadly with IV Vanco and cefepime -Check MRSA nasal swab and if negative, likely can discontinue Vanco -Blood cultures -Influenza negative -Bilateral mastectomy sites do not appear infected, drains draining serous/serosanguineous drainage; no signs of fluid collection on chest CT -Given sinus symptoms, will check CT sinuses -Supportive care with IVF, Tylenol (2) Hypokalemia: (3) Hypomagnesemia: -K+ 3.1, MG +1.4 -Replace, follow electrolytes (4) Breast cancer: -S/P bilateral mastectomy on 11/06 -Currently receiving targeted therapy with Herceptin and progenitor, last dose on 11/15 (5) Depression: -Continue citalopram (6) GERD (gastroesophageal reflux disease): -Continue PPI (7) DVT prophylaxis: -SQ Lovenox History of Present Illness Chief Complaint: Cough, fever Primary Care Provider: Crys Morse MD 39-year-old female who presents to the ED for evaluation of cough and fever. Patient with history of breast cancer s/p recent bilateral mastectomy, currently receiving targeted therapy with Herceptin and Perjeta (last treatment on 11/15). Patient reports she has been feeling sick since Thanksgiving. She initially had a URI that had since resolved. She also underwent a CT scan with IV contrast and developed a drug rash. She was placed on a course of prednisone which she completed yesterday. She had her bilateral mastectomy on 11/06. Surgical drains remain in place. She was placed on prophylactic cephalexin postoperatively and still has a couple of days remaining of the prescription. She has no concerns of infection at her surgical site. There has been small amounts of serous and serosanguineous drainage in the JPs. A few days ago, patient reports she started developed URI symptoms again with rhinorrhea, congestion. Yesterday she developed eye drainage with a cough. She reports cough is intermittently productive. She was also running some fevers at home. She denies chest pain or shortness of breath. No lightheadedness, dizziness, diaphoresis, syncopal events. Denies abdominal pain, nausea, vomiting, diarrhea. No urinary symptoms. In the ED, patient is afebrile with stable BP. Heart rate was mildly elevated in the 110s. Labs show WBC 19.8K, mild hypokalemia potassium 3.1. CT chest shows scattered mild airspace opacities within the lungs and favor a mild infectious process. She received Tylenol, IVF, IV ceftriaxone. Allergies Allergy/AdvReac Type Severity Reaction Status Date / Time naproxen Allergy Intermediate HIVES Verified 11/17/19 06:21 pseudoephedrine Allergy Intermediate agitation Verified 11/17/19 06:21 Iodinated Contrast Media Allergy Rash Verified 11/17/19 06:21 Home Medications Home Medications Medication Instructions Recorded Confirmed Type cephalexin 500 mg PO BID 11/17/19 11/17/19 History citalopram 20 mg PO DAILY 11/17/19 11/17/19 History fluticasone propionate [Flonase 2 spray INTRANASAL DAILY 11/17/19 11/17/19 History Allergy Relief] lidocaine-prilocaine 1 applic TOPICAL UD PRN 11/17/19 11/17/19 History loperamide 2 mg PO QID PRN 11/17/19 11/17/19 History loratadine [Claritin] 10 mg PO DAILY 11/17/19 11/17/19 History lorazepam 0.5 mg PO Q8 PRN 11/17/19 11/17/19 History multivitamin 1 tab PO DAILY 11/17/19 11/17/19 History omeprazole 20 mg PO DAILY 11/17/19 11/17/19 History Past Med/Surg History Medical History Breast cancer Depression GERD (gastroesophageal reflux disease) Surgical History H/O mastectomy Family History Grandfather Heart disease Social History (Updated 11/17/19 @ 09:25 by NANCY Gordon) Preferred Language: [place]er Communication Ability: 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 Vasquez's addendum for physical exam. Results & Data Vital Signs (Past 12 Hours) Vital Signs Temp Pulse Pulse Resp BP BP Pulse Ox 11/17/19 07:33 101 H 23 121/74 100 11/17/19 07:31 97 11/17/19 07:00 98 11/17/19 06:55 108/88 98 11/17/19 06:30 106 H 20 100 11/17/19 06:27 101 H 20 144/85 H 99 11/17/19 06:26 107 H 21 144/85 H 11/17/19 05:36 107 H 96 11/17/19 04:46 112 H 20 129/73 100 11/17/19 04:02 36.7 C 118 H 18 138/87 99 Laboratory Results Short CBC 11/17/19 Range/Units 05:28 WBC 19.80 H (4.8-10.8) K/uL Hgb 11.5 L (12.0-16.0) g/dL Hct 35.2 L (37-47) % Plt Count 372 (130-400) K/uL BMP 11/17/19 05:28 Sodium 139 Potassium 3.1 L Chloride 105 Carbon Dioxide 29 BUN 16 Creatinine 0.84 Glucose 106 H Calcium 9.3 Liver Function 11/17/19 Range/Units 05:28 Total Bilirubin 0.4 (0.2-1) mg/dl AST 34 (15-37) U/L ALT 55 (12-78) U/L Alkaline Phosphatase 95 (45-117) U/L Albumin 3.6 (3.4-5.0) gm/dl Urine 11/17/19 Range/Units 07:30 Urine Color Yellow Urine Appearance Clear (Clear) Urine pH 6.5 (4.5-7.5) Ur Specific [place] 1.004 (1.000-1.030) Urine Protein Negative (Negative) Urine Glucose (UA) Negative (Negative) Diagnostic Findings CXR IMPRESSION: No acute cardiopulmonary findings. CHEST CT IMPRESSION: 1. Scattered mild airspace opacities within the lungs which are new since chest CT November 08, 2019 and favor a mild infectious process. 2. Expected findings from recent bilateral mastectomies. No fluid collection. 3. No change in scattered tiny pulmonary nodules which are likely benign but can be assessed on subsequent exams to ensure stability. Code Status & VTE Plan VTE Prophylaxis Plan VTE Prophylaxis will be ordered: Yes Supervising Physician Co-Signing Physician Notes I obtained the history and examined the patient myself. 39-year-old woman with history significant for breast cancer status post recent bilateral mastectomy [11/06/2019] currently getting targeted therapy with Herceptin and Perjeta [last therapy on 11/15/2019] who presented with fevers, malaise, cough. She had URI symptoms about a month ago which improved with treatment. Had allergic reaction to contrast recently which is managed with prednisone completed yesterday. Has been having worsening of rhinorrhea, nasal drip, maxillary sinus congestion, conjunctival discharge, fever and cough over the past couple of days, associated with mildly. Other history is as detailed above. On physical exam General: Ill appearing, in no distress Eyes: PERRL, red conjunctivae with discharge, anicteric sclerae, EOM intact bilaterally ENMT: External ear and nose normal, oropharynx normal, no erythema or exudate., reports some tenderness on palpating maxillary regions of face Neck: Normal visual inspection, no tracheal deviation, no swelling noted Respiratory: Normal respiratory effort, no respiratory distress, lungs clear to auscultation, no crackles and no wheezes Cardiovascular: Pulse is RRR. S1 S2 no pedal edema Chest (Breasts): Chest: Clean mastectomy surgical sites. Port site on right anterior chest wall non tender, not fluctuant. FRANKIE drain on both sides from mastectomy sites (serosanguinous fluid in right drain and serous fluid in left drain) Gastrointestinal (Abdomen): Abdomen is not distended, soft, non-tender to palpation, no guarding, no palpable hepatosplenomegaly, normal bowel sounds Musculoskeletal: No cyanosis or clubbing, all extremities motor strength 5/5 Genitourinary: No CVA tenderness Skin: No rash noted on gross inspection Neurologic: Alert and oriented x 3, No focal weakness, sensation grossly intact Psychiatric: Euthymic affect, no depressed affect Lymphatic: No cervical lymphadenopathy Patient is tachycardic, has leukocytosis of 19, lactate is 2 With reported fevers at home Patient met sepsis criteria. Possible causes - Pneumonia, Sinusitis Started on broad-spectrum antibiotics. Will cover for MRSA as well as Pseudomonas, considering recent surgery, 2 drains in situ, recent antibiotic therapy the patient completed this week, being on chemo. We will follow-up blood cultures CT chest showing scattered mild airspace opacities Facial CT showing acute sinusitis, occluded drainage pathways. Get ENT evaluation Other plans as above in Marguerite CRUZ's notes
--- NOTE | 2019-11-17 09:41 | CT Scan Report ---
SINUS CT WITHOUT CONTRAST CLINICAL HISTORY: Fever. COMPARISON STUDY: PET/CT June 27, 2019. Technique: Helical axial images of the sinuses were obtained without IV contrast. Coronal reformats w ere viewed. Automated exposure control was utilized for the study. A dose lowering technique was ut ilized adhering to the principles of ALARA. CT DOSE: 622.86 mGy.cm FINDINGS: Visualized portions of the intracranial contents are unremarkable on this unenhanced exam. Mastoid air cells are clear. There is no fluid within the middle ears. Ossicles are intact. Orbits ar e unremarkable. Frontal sinuses are clear. There is moderate ethmoid sinus mucosal thickening. There is mild sphenoid sinus mucosal thickening. The sphenoethmoidal recesses are occluded. The bilateral o stiomeatal complexes are occluded. There are large air-fluid levels within the bilateral maxillary si nuses, left larger than right. There are bubbly secretions. No bony destruction is present. IMPRESSION: 1. Large air-fluid levels within the bilateral maxillary sinuses. These findings can indicate acute s inusitis. 2. Moderate ethmoid mucosal thickening with scattered secretions. 3. Occluded drainage pathways, as described above. ACT 112: Negative or not required by law. Electronically signed by: Jose Jules M.D. 11/17/2019 9:40 AM
[2019-11-17] MEDS: MAGNESIUM SULFATE / D5W 1 GM/100 ML BAG IV SCH ×2 (10:18→15:33)
[2019-11-17] MEDS ORDERED: HEPARIN 100 UNIT/ML 5ML FLUSH FLUSH PRN (13:22)
[2019-11-17] MEDS ORDERED: ACETAMINOPHEN 325 MG TAB PO PRN (13:32)
[2019-11-17] MEDS ORDERED: LORazepam 0.5 MG TAB PO PRN (13:32)
[2019-11-17] MEDS ORDERED: ONDANSETRON INJ 2 MG/ML 2 ML VIAL IV PRN (13:32)
[2019-11-17] MEDS ORDERED: VANCOMYCIN CONSULT ACTIVE PRN (13:32)
[2019-11-17] MEDS ORDERED: POTASSIUM CHLORIDE 20 MEQ TABCR PO STA (13:32)
[2019-11-17] MEDS ORDERED: MAGNESIUM SULFATE / D5W 1 GM/100 ML BAG IV ONE (13:45)
--- NOTE | 2019-11-17 14:08 | Pharmacy Report ---
Pharmacy Abx Initial Consult - Date of Service November 17, 2019 - Pharmacy Dosing Scope Date of Consult: 11/17/19 Consultation requested by: Ernestina Everett Pharmacy is consulted to initiate VANCOMYCIN IV dosing therapy, order appropriate labs and adjust drug dose/frequency. - Subjective The patient is a 39 year old F admitted on 11/17/19 08:16. - Objective Height: 5 ft 7 in Weight: 63.9 kg Vital Signs (Past 12hrs): Vital Signs Temp Pulse Pulse Resp BP BP Pulse Ox 11/17/19 13:52 36.7 C 92 H 20 120/79 97 11/17/19 13:00 93 H 17 98 11/17/19 12:30 90 22 100 11/17/19 12:00 94 H 17 122/82 100 11/17/19 11:30 95 H 17 133/84 99 11/17/19 11:00 96 H 19 112/77 99 11/17/19 10:30 105 H 21 131/85 11/17/19 10:00 94 H 14 119/81 99 11/17/19 09:32 103 H 22 11/17/19 09:01 94 H 19 100 11/17/19 09:00 96 H 18 113/73 98 11/17/19 08:30 93 H 23 133/84 99 11/17/19 08:00 99 H 17 122/77 98 11/17/19 07:33 101 H 23 121/74 100 11/17/19 07:31 97 11/17/19 07:00 98 11/17/19 06:55 108/88 98 11/17/19 06:30 106 H 20 100 11/17/19 06:27 101 H 20 144/85 H 99 11/17/19 06:26 107 H 21 144/85 H 11/17/19 05:36 107 H 96 11/17/19 04:46 112 H 20 129/73 100 11/17/19 04:02 36.7 C 118 H 18 138/87 99 Lab Results (24hrs): Laboratory Tests (24 Hours) 11/17/19 11/17/19 05:28 05:28 WBC 19.80 H Neut # (Auto) 17.47 H Creatinine 0.84 Est Cr Clr Drug Dosing 87.4 Micro Results: 11/17/19 06:04 Aerobic Blood Culture - Pending Blood Anaerobic Blood Culture - Pending 11/17/19 05:29 Aerobic Blood Culture - Pending Blood Anaerobic Blood Culture - Pending - Risk Factors for Resistance * Hospitalization for 48 hours or more within the past 90 days * Immunocompromised, Active breast CA (chemotherapy, immunomodulators) - Assessment & Plan Assessment 39 year old F ordered VANCOMYCIN and CEFEPIME for pneumonia. Active breast can cer, s/p double mastectomy on 11/06, currently receiving chemo (last dose 11/15). Plan Vancomycin IV * Estimated PK Parameters: Vd 0.7 L/kg, Franck 0.077 hr-1, t1/2 ~9 hr * Loading dose: 1500mg (~23 mg/kg) * Maintenance dose: 1000mg IV (15 mg/kg) every 10 hours * Goal trough level for PNEUMONIA : 15 to 20 mcg/mL * Trough level ordered for 11/19/19 @ 0400. Pharmacy will continue to follow and will adjust dose/frequency as necessary. Thank you.
[2019-11-17] MEDS: CITALOPRAM 20 MG TAB PO SCH (14:09)
[2019-11-17] MEDS: ENOXAPARIN INJ 40 MG/0.4 ML SYR SQ SCH (14:09)
[2019-11-17] MEDS: MULTIVITAMIN TAB PO SCH (14:09)
[2019-11-17] MEDS: PANTOprazole 40 MG TAB PO SCH (14:09)
[2019-11-17] MEDS: LORATADINE 10 MG TAB PO SCH (14:09)
[2019-11-17] MEDS: CEFEPIME 2,000 MG in SYRINGE 7.5 ML IV SCH ×2 (14:10→21:30)
[2019-11-17] MEDS ORDERED: VANCOMYCIN HCL 1,500 MG in SODIUM CHLORIDE 0.9% 500 ML IV SCH (14:30)
[2019-11-17] MEDS: SODIUM CHLORIDE 0.9% 1000ML 1,000 ML IV SCH (15:29)
--- NOTE | 2019-11-17 17:26 | Emergency Department Note ---
Entered by Abdullahi Ospina acting as a scribe for History of Present Illness General Chief complaint: Cough Stated complaint: CONJUNCTIVITIS,COUGH,FEVER,SINUS CONGESTIONS Time Seen by Provider: 11/17/19 04:33 Source: patient History of Present Illness Onset (ago): day(s) (few) Location: chest Pain Consistency: + other (worsening) Quality: + other (cough) Associated symptoms: + other (fever, eyes and nose running) The patient is a 39 y/o female who presents to the ED w/ CC of a worsening cough beginning a few days ago. The patient states she currently has breast cancer and had her sixth round of chemo 26 days ago. She reports she then had a CT scan and a drug rash that made her itch severely. She reports "I am not receiving IV contrast again. I am not doing that again." The patient notes she was hospitalized after her double mastectomy 11 days ago. She states she was discharged from the hospital and has had a cough and runny nose since. The patient reports she has allergies and had fresh delgadillo at home, so she thought this may be contributing to her symptoms. She notes over the past 24 hours her symptoms have progressively worsened. The patient states her cough has worsened, she developed a low fever of 100.6 degrees F, and her eyes and nose started running. She denies taking Tylenol, urinary symptoms, abdominal pain, increased rash round the incision sites, swelling in her legs, chest pain, and pain in her legs. Home Medications Home Medications Medication Instructions Recorded Confirmed Type cephalexin 500 mg PO BID 11/17/19 11/17/19 History citalopram 20 mg PO DAILY 11/17/19 11/17/19 History fluticasone propionate [Flonase 2 spray INTRANASAL DAILY 11/17/19 11/17/19 Hi story Allergy Relief] lidocaine-prilocaine 1 applic TOPICAL UD PRN 11/17/19 11/17/19 History loperamide 2 mg PO QID PRN 11/17/19 11/17/19 History loratadine [Claritin] 10 mg PO DAILY 11/17/19 11/17/19 History lorazepam 0.5 mg PO Q8 PRN 11/17/19 11/17/19 History multivitamin 1 tab PO DAILY 11/17/19 11/17/19 History omeprazole 20 mg PO DAILY 11/17/19 11/17/19 History Allergies Allergy/AdvReac Type Severity Reaction Status Date / Time naproxen Allergy Intermediate HIVES Verified 11/17/19 06:21 pseudoephedrine Allergy Intermediate agitation Verified 11/17/19 06:21 Iodinated Contrast Media Allergy Rash Verified 11/17/19 06:21 Past Med/Surg History Medical History Breast cancer Depression GERD (gastroesophageal reflux disease) Surgical History H/O mastectomy Family History Grandfather Heart disease Social History (Updated 11/17/19 @ 09:25 by NANCY Gordon) Preferred Language: Macedonian Communication Ability: Effective Import And Export Clerk Required: No Beliefs That Will Affect Care: None Current Living Situation: Spouse Other Information That Helps Us Care for You: No Feels Safe at Home: Yes Safety Concerns: Feels Safe At This Time Smoking Status: Never smoker Hx Alcohol Use: Yes Alcohol type: wine Alcohol Intake Frequency: Holidays/Special Occasions Hx Substance Use: No Review of Systems See HPI for pertinent positives & negatives. and A total of 10 systems reviewed and were otherwise negative Physical Exam Vital Signs Vital Signs - 24 hr 11/17/19 04:02 11/17/19 04:46 11/17/19 05:36 Temperature 36.7 C Temperature Source Oral Pulse Rate 118 H 112 H 107 H Pulse Rate [Apical] Pulse Rate from SpO2 Sensor 109 H Pulse Rhythm [Apical] Pulse Strength [Apical] Respiratory Rate 18 20 Respiratory Effort / Characteristics Non-Labored Respiratory Depth Normal Respiratory Pattern Blood Pressure 138/87 129/73 Blood Pressure [Right Arm] Blood Pressure Mean 104 79 Blood Pressure Mean [Right Arm] Blood Pressure Position Sitting Pulse Oximetry 99 100 96 Oxygen Delivery Method Room Air Room Air Sepsis Recent Fever Within 48 Hours No Sepsis Action Taken by Nursing No Action Required 11/17/19 06:26 11/17/19 06:27 11/17/19 06:30 Temperature Temperature Source Pulse Rate 107 H 106 H Pulse Rate [Apical] 101 H Pulse Rate from SpO2 Sensor 108 H 107 H Pulse Rhythm [Apical] Regular Pulse Strength [Apical] Normal Respiratory Rate 21 20 20 Respiratory Effort / Characteristics Non-Labored Respiratory Depth Normal Respiratory Pattern Regular Blood Pressure 144/85 H Blood Pressure [Right Arm] 144/85 H Blood Pressure Mean 96 Blood Pressure Mean [Right Arm] 104 Blood Pressure Position Pulse Oximetry 99 100 Oxygen Delivery Method Room Air Sepsis Recent Fever Within 48 Hours Sepsis Action Taken by Nursing 11/17/19 06:55 11/17/19 07:00 11/17/19 07:31 Temperature Temperature Source Pulse Rate Pulse Rate [Apical] Pulse Rate from SpO2 Sensor 107 H 112 H 102 H Pulse Rhythm [Apical] Pulse Strength [Apical] Respiratory Rate Respiratory Effort / Characteristics Respiratory Depth Respiratory Pattern Blood Pressure 108/88 Blood Pressure [Right Arm] Blood Pressure Mean 94 Blood Pressure Mean [Right Arm] Blood Pressure Position Pulse Oximetry 98 98 97 Oxygen Delivery Method Sepsis Recent Fever Within 48 Hours Sepsis Action Taken by Nursing 11/17/19 07:33 11/17/19 08:00 Temperature Temperature Source Pulse Rate 101 H 99 H Pulse Rate [Apical] Pulse Rate from SpO2 Sensor 102 H 99 H Pulse Rhythm [Apical] Pulse Strength [Apical] Respiratory Rate 23 17 Respiratory Effort / Characteristics Respiratory Depth Respiratory Pattern Blood Pressure 121/74 122/77 Blood Pressure [Right Arm] Blood Pressure Mean 93 90 Blood Pressure Mean [Right Arm] Blood Pressure Position Pulse Oximetry 100 98 Oxygen Delivery Method Sepsis Recent Fever Within 48 Hours Sepsis Action Taken by Nursing Vital signs reviewed. General: Chronically ill-appearing 39 year old, in no significant distress. HEENT: No scleral icterus, PERRLA, neck supple. Atraumatic. Left conjunctiva injection with a clear discharge. Cardiovascular: Tachycardic rate and regular rhythm, no extra sounds. Pulmonary: Coarse breath sounds bilaterally, normal work of breathing. Abdomen: Soft, nontender, nondistended, positive bowel sounds. Musculoskeletal: Atraumatic, no peripheral edema. Neurologic: Patient awake alert and oriented x 3 Skin: Warm to touch, dry, no rash. Bilateral mastectomy sites with dermabond closure. Drains in place. Serosanguinous drainage. No erythema or s/s cellulitis Course Course 0442: Past medical records reviewed. The patient was evaluated in room A02. A complete history and physical examination was performed. 0621: I reevaluated the patient and updated her of her current results. I discussed the need for a non-contract CT scan. She is in agreement with the plan. 0644: I reviewed the patient's case with Dr. Easley, [facility]. He will evaluate the patient for further management. Administered Medications Citalopram Hydrobromide (Celexa) 20 mg PO DAILY ZULY Stop: 12/17/19 13:31 Last Admin: 11/17/19 14:09 Dose: 20 mg Documented by: [id number] Enoxaparin Sodium (Lovenox) 40 mg SQ Q24H ZULY Stop: 12/17/19 13:31 Last Admin: 11/17/19 14:09 Dose: 40 mg Documented by: [id number] Sodium Chloride (Nss 1000ml) 1,000 mls @ 100 mls/hr IV .Q10H ZULY Stop: 12/17/19 13:59 Last Infusion: 11/17/19 15:40 Dose: 0 mls/hr Documented by: [id number] Admin: 11/17/19 15:29 Dose: 100 mls/hr Documented by: [id number] Cefepime HCl 2,000 mg/ Syringe 20 mls @ 5.5 mls/min IV Q8H ZULY; Protocol Stop: 11/24/19 13:59 Last Admin: 11/17/19 14:10 Dose: 5.5 mls/min Documented by: [id number] Loratadine (Claritin) 10 mg PO DAILY ZULY Stop: 12/17/19 13:31 Last Admin: 11/17/19 14:09 Dose: 10 mg Documented by: [id number] Multivitamins (Multivitamin Tab) 1 tab PO DAILY ZULY Stop: 12/17/19 13:31 Last Admin: 11/17/19 14:09 Dose: 1 tab Documented by: [id number] Pantoprazole Sodium (Protonix) 40 mg PO DAILY ZULY Stop: 12/17/19 13:31 Last Admin: 11/17/19 14:09 Dose: 40 mg Documented by: [id number] Discontinued Medications Acetaminophen (Tylenol) 1,000 mg PO ONE STA Stop: 11/17/19 04:47 Last Admin: 11/17/19 05:03 Dose: 1,000 mg Documented by: [id number] Sodium Chloride (Nss 1000ml) 2,000 mls @ 999 mls/hr IV .Q2H1M ZULY Stop: 11/17/19 07:00 Last Infusion: 11/17/19 07:27 Dose: 0 mls/hr Documented by: [id number] Admin: 11/17/19 05:35 Dose: 999 mls/hr Documented by: [id number] Ceftriaxone Sodium (Rocephin) 1,000 mg in 50 mls @ 100 mls/hr IV NOW STA Stop: 11/17/19 06:25 Last Infusion: 11/17/19 07:27 Dose: 0 mls/hr Documented by: [id number] Admin: 11/17/19 06:27 Dose: 100 mls/hr Documented by: [id number] Potassium Chloride 40 meq/ (Sodium Chloride) 1,020 mls @ 125 mls/hr IV .Q8H10M ZULY Stop: 12/17/19 06:44 Last Admin: 11/17/19 09:34 Dose: 125 mls/hr Documented by: [id number] Magnesium Sulfate/Dextrose (Magnesium Sulfate / D5w) 1 gm in 100 mls @ 100 mls/hr IV Q1H ZULY Stop: 11/17/19 11:59 Last Admin: 11/17/19 15:33 Dose: Not Given Documented by: [id number] Infusion: 11/17/19 11:18 Dose: 0 mls/hr Documented by: [id number] Admin: 11/17/19 10:18 Dose: 100 mls/hr Documented by: [id number] Magnesium Sulfate/Dextrose (Magnesium Sulfate / D5w) 1 gm in 100 mls @ 100 mls/hr IV ONE ONE Stop: 11/17/19 14:44 Last Admin: 11/17/19 15:28 Dose: 100 mls/hr Documented by: [id number] Vancomycin HCl 1,500 mg/ (Sodium Chloride) 530 mls @ 200 mls/hr IV 1430 ZULY Stop: 11/17/19 17:08 Last Admin: 11/17/19 15:39 Dose: 200 mls/hr Documented by: [id number] Potassium Chloride (Klor-Con M20) 40 meq PO NOW STA Stop: 11/17/19 13:33 Last Admin: 11/17/19 14:08 Dose: Not Given Documented by: [id number] Medical Decision Making Differential Diagnosis Differential diagnoses includes but is not limited to pneumonia, bronchitis, COPD/Asthma exacerbation, pneumothorax, pulmonary embolism, congestive heart failure, acute coronary syndrome Medical Records Attestation: I reviewed the patient's medical records. Home Medications Current Medication List: was personally reviewed by me Laboratory Data Attestation: I reviewed the patient's lab results. Result diagrams: 11/17/19 05:28 11/17/19 05:28 Lab Results 11/17/19 11/17/19 11/17/19 Range/Units 05:28 05:28 05:28 WBC 19.80 H (4.8-10.8) K/uL RBC 3.64 L (4.2-5.4) M/uL Hgb 11.5 L (12.0-16.0) g/dL Hct 35.2 L (37-47) % MCV 96.7 (80-100) fL MCH 31.6 (25-34) pg MCHC 32.7 (32-36) g/dL RDW Std Deviation 56.1 H (36.4-46.3) fL RDW Coeff of [place] 16.0 H (11.5-14.5) % Plt Count 372 (130-400) K/uL MPV 8.7 (7.4-10.4) fL Immature Gran % (Auto) 0.4 % Neut % (Auto) 88.1 % Lymph % (Auto) 5.4 % [place] % (Auto) 5.1 % Eos % (Auto) 0.9 % Baso % (Auto) 0.1 % Immature Gran # (Auto) 0.07 H (0.00-0.02) K/uL Neut # (Auto) 17.47 H (1.4-6.5) K/uL Lymph # (Auto) 1.06 L (1.2-3.4) K/uL [place] # (Auto) 1.01 H (0.11-0.59) K/uL Eos # (Auto) 0.17 (0-0.5) K/uL Baso # (Auto) 0.02 (0-0.2) K/uL Sodium 139 (136-145) mmol/L Potassium 3.1 L (3.5-5.1) mmol/L Chloride 105 (98-107) mmol/L Carbon Dioxide 29 (21-32) mmol/L Anion Gap 5.0 (3-11) BUN 16 (7-18) mg/dl Creatinine 0.84 (0.6-1.2) mg/dl Est Cr Clr Drug Dosing 87.4 ml/min Est GFR ( Amer) 101.5 Est GFR (Non-Af Amer) 87.6 BUN/Creatinine Ratio 18.7 (10-20) Glucose 106 H (70-99) mg/dl Lactate 2.0 (0.4-2.0) mmol/L Calcium 9.3 (8.5-10.1) mg/dl Magnesium (1.8-2.4) mg/dl Total Bilirubin 0.4 (0.2-1) mg/dl AST 34 (15-37) U/L ALT 55 (12-78) U/L Alkaline Phosphatase 95 (45-117) U/L Total Protein 7.1 (6.4-8.2) gm/dl Albumin 3.6 (3.4-5.0) gm/dl Globulin 3.5 (2.5-4.0) gm/dl Albumin/Globulin Ratio 1.0 (0.9-2) Urine Color Urine Appearance (Clear) Urine pH (4.5-7.5) Ur Specific [place] (1.000-1.030) Urine Protein (Negative) Urine Glucose (UA) (Negative) Urine Ketones (Negative) Urine Blood (Negative) Urine Nitrite (Negative) Urine Bilirubin (Negative) Urine Urobilinogen (Negative) Ur Leukocyte Esterase (Negative) Influenza Type A (PCR) (Neg) Influenza Type B (PCR) (Neg) 11/17/19 11/17/19 11/17/19 Range/Units 05:28 05:30 07:30 WBC (4.8-10.8) K/uL RBC (4.2-5.4) M/uL Hgb (12.0-16.0) g/dL Hct (37-47) % MCV (80-100) fL MCH (25-34) pg MCHC (32-36) g/dL RDW Std Deviation (36.4-46.3) fL RDW Coeff of [place] (11.5-14.5) % Plt Count (130-400) K/uL MPV (7.4-10.4) fL Immature Gran % (Auto) % Neut % (Auto) % Lymph % (Auto) % [place] % (Auto) % Eos % (Auto) % Baso % (Auto) % Immature Gran # (Auto) (0.00-0.02) K/uL Neut # (Auto) (1.4-6.5) K/uL Lymph # (Auto) (1.2-3.4) K/uL [place] # (Auto) (0.11-0.59) K/uL Eos # (Auto) (0-0.5) K/uL Baso # (Auto) (0-0.2) K/uL Sodium (136-145) mmol/L Potassium (3.5-5.1) mmol/L Chloride (98-107) mmol/L Carbon Dioxide (21-32) mmol/L Anion Gap (3-11) BUN (7-18) mg/dl Creatinine (0.6-1.2) mg/dl Est Cr Clr Drug Dosing ml/min Est GFR ( Amer) Est GFR (Non-Af Amer) BUN/Creatinine Ratio (10-20) Glucose (70-99) mg/dl Lactate (0.4-2.0) mmol/L Calcium (8.5-10.1) mg/dl Magnesium 1.4 L (1.8-2.4) mg/dl Total Bilirubin (0.2-1) mg/dl AST (15-37) U/L ALT (12-78) U/L Alkaline Phosphatase (45-117) U/L Total Protein (6.4-8.2) gm/dl Albumin (3.4-5.0) gm/dl Globulin (2.5-4.0) gm/dl Albumin/Globulin Ratio (0.9-2) Urine Color Yellow Urine Appearance Clear (Clear) Urine pH 6.5 (4.5-7.5) Ur Specific [place] 1.004 (1.000-1.030) Urine Protein Negative (Negative) Urine Glucose (UA) Negative (Negative) Urine Ketones Negative (Negative) Urine Blood Negative (Negative) Urine Nitrite Negative (Negative) Urine Bilirubin Negative (Negative) Urine Urobilinogen Negative (Negative) Ur Leukocyte Esterase Negative (Negative) Influenza Type A (PCR) Neg for Influ A (Neg) Influenza Type B (PCR) Neg for Influ B (Neg) Imaging Data Attestation: I personally reviewed and interpreted this imaging study as follows: My Impression: XR chest 1V portable: No focal infiltrate. No lung consolidation. No pneumothorax. Radiologist's Impression: CT OF THE CHEST WITHOUT IV CONTRAST CLINICAL HISTORY: Fever. Cough. Evaluate for pneumonia. Breast cancer. COMPARISON STUDY: PET/CT June 27, 2019. Chest CT November 08, 2019. CT DOSE: 413.44 mGy.cm TECHNIQUE: Axial images of the chest were obtained without IV contrast. Images were reviewed in the axial, sagittal, and coronal planes. IV contrast was not administered for this examination. Automated exposure control was utilized for the study. A dose lowering technique was utilized adhering to the principles of ALARA. FINDINGS: A right internal jugular [id number] is in place. No enlarged axillary, mediastinal or hilar lymph nodes are present. There are numerous small bilateral axillary lymph nodes. There are postoperative findings from recent bilateral mastectomies with surgical drains in place. There is mild infiltration which is expected within the operative beds. There is no fluid collection. Upper abdomen is unremarkable. Mild multifocal airspace opacities within the lungs are new since chest CT of November 08, 2019. These measure up to 1.5 cm within the right middle lobe. There is no cavitation. There is no pneumothorax or pleural effusion. Multiple small previously described pulmonary nodules remain unchanged since PET/CT of June 27, 2019. IMPRESSION: 1. Scattered mild airspace opacities within the lungs which are new since chest CT November 08, 2019 and favor a mild infectious process. 2. Expected findings from recent bilateral mastectomies. No fluid collection. 3. No change in scattered tiny pulmonary nodules which are likely benign but can be assessed on subsequent exams to ensure stability. ACT 112: Negative or not required by law. Electronically signed by: Jose Jules M.D. 11/17/2019 7:05 AM Dictated: 11/17/19656 Transcribed: 11/17/19656 ECG Data Attestation: I personally reviewed and interpreted this ECG as follows: Indication: + SOB/dyspnea Rate (beats per minute): 100 Rhythm: + normal sinus ECG Intervals/blocks: + Normal QT-c ECG Findings: + Other (Diffuse T-wave flattening, left atrial enlargement); no PACs and no PVCs Blood Pressure Blood Pressure Findings: Elevated blood pressure Blood Pressure Disposition: further management by hospitalist NILE Narrative This pt was evaluated and appeared to be in uncomfortable, but in no distress. She is tachycardic from triage and again in the room. Temp was repeated and although pt felt warm, temp was normal x 2. Pt was hydrated with 2 L NSS, given po tylenol. CXR was performed and is clear to my interpretation. Pt is found to have a leukocytosis w left shift. Blood cx are pending and lactate is 2.0. Pt was medicated with IV ceftriaxone. CT chest was performed without IV contrast (as pt had a terrible reaction with dermatitis for weeks previously) and reveals small focal infiltrated in RML. UA is clear, flu negative. Pt was reevaluated and we did discuss the possibility of PE, although lab work and clinical presentation support infectious etiology. She is improving clinically. Pt was d/w the hospitalist service who will evaluate for further management. Pt is aware and agrees. Impression & Plan Pneumonia, Breast cancer, Leukocytosis, Tachycardia Discharge Plan Visit Data *Final* Discharge Date/Time: 11/17/19 12:06 Chief Complaint: Cough Stated Complaint: CONJUNCTIVITIS,COUGH,FEVER,SINUS CONGESTIONS ED Provider: Alka Payne Discharge Problem: Pneumonia, Breast cancer, Leukocytosis, Tachycardia Patient Disposition: Admitted As Inpatient Discharge Instructions Interventions: ED Discharge Assessment Last Done: 11/17/19 12:06 Discharge Problem: Pneumonia Qualifiers: Pneumonia type: due to unspecified organism Laterality: right Lung location: middle lobe of lung Qualified Code(s): J18.9 - Pneumonia, unspecified organism Breast cancer Qualifiers: Breast location: unspecified site of breast Estrogen receptor status: unspeci fied Patient sex: female Laterality: unspecified laterality Qualified Code(s): C50.919 - Malignant neoplasm of unspecified site of unspecified female breast Leukocytosis Qualifiers: Leukocytosis type: bandemia Qualified Code(s): D72.825 - Bandemia The scribe's documentation has been prepared under my direction and personally reviewed by me in its entirety. I confirm that the note above accurately reflects all work, treatment, procedures, and medical decision making performed by me.
[2019-11-17] MEDS ORDERED: POTASSIUM CHLORIDE PWD 20 MEQ PACK PO STA (18:39)
[2019-11-17] MEDS: DOXYCYCLINE HYCLATE 100 MG in DEXTROSE 5% 100 ML IV SCH (19:24)
[2019-11-17] MEDS: OXYMETAZOLINE 0.05% 30 ML BTL PRN (19:24)
[2019-11-17] MEDS ORDERED: VANCOMYCIN HCL 1,000 MG in SODIUM CHLORIDE 0.9% 250 ML IV SCH (22:00)
[2019-11-18] MEDS: SODIUM CHLORIDE 0.9% 1000ML 1,000 ML IV SCH ×3 (00:46→21:15)
[2019-11-18] MEDS: CEFEPIME 2,000 MG in SYRINGE 7.5 ML IV SCH ×3 (06:01→22:04)
[2019-11-18] MEDS: DOXYCYCLINE HYCLATE 100 MG in DEXTROSE 5% 100 ML IV SCH ×2 (06:01→18:30)
[2019-11-18 06:52] LABS: BUN Creatinine Ratio 15.5 (10-20); Basophils # (auto) 0.01 K/uL (0-0.2); Basophils % (auto) 0.1 %; Calcium 8.6 mg/dl (8.5-10.1); Creatinine Clr Calc Pharmacy 116.6 ml/min; Eosinophils # (auto) 0.21 K/uL (0-0.5); Eosinophils % (auto) 2.2 %; Hematocrit (blood only) 30.6 % (37-47); Hemoglobin 9.9 g/dL (12.0-16.0); Immature Granulocytes # (auto) 0.03 K/uL (0.00-0.02); Immature Granulocytes % (auto) 0.3 %; Lymphocytes # (auto) 0.94 K/uL (1.2-3.4); Lymphocytes % (auto) 9.6 %; Magnesium 1.7 mg/dl (1.8-2.4); Mean Corpuscular Hemoglobin 31.1 pg (25-34); Mean Corpuscular Hgb Conc 32.4 g/dL (32-36); Mean Corpuscular Volume 96.2 fL (80-100); Mean Platelet Volume 8.6 fL (7.4-10.4); Monocytes # (auto) 0.45 K/uL (0.11-0.59); Monocytes % (auto) 4.6 %; Neutrophils # (auto) 8.12 K/uL (1.4-6.5); Neutrophils % (auto) 83.2 %; Platelet Count 305 K/uL (130-400); Potassium 3.7 mmol/L (3.5-5.1); RDW Coefficient of Variation 15.9 % (11.5-14.5); RDW Standard Deviation 55.7 fL (36.4-46.3); Red Blood Count 3.18 M/uL (4.2-5.4); White Blood Count 9.76 K/uL (4.8-10.8)
[2019-11-18] MEDS: CITALOPRAM 20 MG TAB PO SCH (08:45)
[2019-11-18] MEDS: MULTIVITAMIN TAB PO SCH (08:45)
[2019-11-18] MEDS: PANTOprazole 40 MG TAB PO SCH (08:45)
[2019-11-18] MEDS: LORATADINE 10 MG TAB PO SCH (08:46)
--- NOTE | 2019-11-18 13:46 | Hospitalist Progress Note ---
Date of Service November 18, 2019 Assessment & Plan (1) Acute sinusitis: (2) Sepsis: (3) Pneumonia: Fevers, chills, cough CT chest showing scattered opacities. Facial CT acute maxillary sinusitis bilaterally and occluded drainage pathways. Leukocytosis of 19.8 on admission with tachycardia Initially started on Vanco and cefepime as patient was recently on antibiotics, recent surgeries, multiple drains in situ. Patient reported some flushing yesterday night after receiving the vancomycin. MRSA swab is negative. Vancomycin discontinued. Currently on cefepime and doxycycline. Blood cultures -24 hours. If still negative by tomorrow, will de-escalate therapy Continue Afrin and loratadine. Spoke with pharmacy yesterday. Nasal washes not available in the apothecary. Okay for patient to use on nasal washes. Patient will need follow-up with ENT for management of her chronic sinusitis and discharge. Leukocytosis is resolved. WBC trended down from 19.8-9.76 this morning. Dilutional effect of IVF could also have contributed to this as all cell lines dropped. Hemoglobin 9.9 today from 11.5 yesterday. [Was 10.5 on outpatient labs in 11/15/2019] This is likely dilutional as all cell lines dropped. We will continue to monitor. (4) Hypokalemia: (5) Hypomagnesemia: Hypokalemia resolved after repletion yesterday. Magnesium this morning 1.7. Replete. Continue to monitor electrolyte (6) Breast cancer: S/P bilateral mastectomy on 11/06 Currently receiving targeted therapy with Herceptin and progenitor, last dose on 11/15 Patient to follow-up with her oncologist on discharge (7) Depression: Stable Continue citalopram (8) GERD (gastroesophageal reflux disease): Continue PPI (9) DVT prophylaxis: SQ Lovenox Subjective Patient reports feeling much better today. Reports conjunctival discharges much improved. Still has sinus congestion, cough. Reported an episode of chills yesterday night but temperature at the time was normal. Stated the room was cold all the time and after the heater was standing up the chills resolved. Review of Systems Review of Systems: All systems reviewed and unremarkable except for mentioned above. Physical Exam Physical Exam: General: Calm in no distress Eyes: PERRL, Normal conjunctiva, no discharge, anicteric sclerae, EOM intact bilaterally ENMT: External ear and nose normal, oropharynx normal, no erythema or exudate Neck: Normal visual inspection, no tracheal deviation, no swelling noted Respiratory: Normal respiratory effort, no respiratory distress, lungs clear to auscultation, no crackles and no wheezes Cardiovascular: Pulse is RRR. S1 S2 no pedal edema Chest (Breasts): Chest: Clean mastectomy surgical sites. Port site on right anterior chest wall non tender, not fluctuant. FRANKIE drain on both sides from mastectomy sites (serosanguinous fluid in right drain and serous fluid in left drain) Gastrointestinal (Abdomen): Abdomen is not distended, soft, non-tender to palpation, no guarding, no palpable hepatosplenomegaly, normal bowel sounds Musculoskeletal: No cyanosis or clubbing, all extremities motor strength 5/5 Genitourinary: No CVA tenderness Skin: No rash noted on gross inspection Neurologic: Alert and oriented x 3, No focal weakness, sensation grossly intact Psychiatric: Euthymic affect, no depressed affect Lymphatic: No cervical lymphadenopathy Results & Data Vital Signs (Past 12 Hours) Vital Signs Temp Pulse Pulse Resp BP Pulse Ox 11/18/19 11:25 36.7 C 92 H 16 117/87 97 11/18/19 08:20 86 11/18/19 07:20 36.7 C 86 16 122/81 98 11/18/19 03:11 36.6 C 89 18 123/77 98 Laboratory Results Abnormal lab results 11/18/19 11/18/19 Range/Units 05:33 05:33 RBC 3.18 L (4.2-5.4) M/uL Hgb 9.9 L (12.0-16.0) g/dL Hct 30.6 L (37-47) % RDW Std Deviation 55.7 H (36.4-46.3) fL RDW Coeff of [place] 15.9 H (11.5-14.5) % Immature Gran # (Auto) 0.03 H (0.00-0.02) K/uL Neut # (Auto) 8.12 H (1.4-6.5) K/uL Lymph # (Auto) 0.94 L (1.2-3.4) K/uL Chloride 110 H (98-107) mmol/L Magnesium 1.7 L (1.8-2.4) mg/dl (1) Breast cancer Breast location: unspecified site of breast Estrogen receptor status: unspecified Laterality: unspecified laterality Patient sex: female Qualified Code(s): C50.919 - Malignant neoplasm of unspecified site of unspecified female breast (2) Pneumonia Laterality: right Lung location: middle lobe of lung Pneumonia type: due to unspecified organism Qualified Code(s): J18.9 - Pneumonia, unspecified organism
[2019-11-18] MEDS: ENOXAPARIN INJ 40 MG/0.4 ML SYR SQ SCH (13:48)
[2019-11-18] MEDS: OXYMETAZOLINE 0.05% 30 ML BTL PRN (13:48)
[2019-11-18] MEDS ORDERED: MAGNESIUM SULFATE / D5W 1 GM/100 ML BAG IV ONE (17:00)
[2019-11-19] MEDS ORDERED: VANCOMYCIN TROUGH ONE (03:30)
[2019-11-19 06:04] LABS: Hematocrit (blood only) 29.3 % (37-47); Hemoglobin 9.7 g/dL (12.0-16.0); Mean Corpuscular Hemoglobin 31.4 pg (25-34); Mean Corpuscular Hgb Conc 33.1 g/dL (32-36); Mean Corpuscular Volume 94.8 fL (80-100); Mean Platelet Volume 8.6 fL (7.4-10.4); Platelet Count 284 K/uL (130-400); RDW Coefficient of Variation 15.5 % (11.5-14.5); RDW Standard Deviation 54.4 fL (36.4-46.3); Red Blood Count 3.09 M/uL (4.2-5.4); White Blood Count 4.86 K/uL (4.8-10.8)
[2019-11-19] MEDS: SODIUM CHLORIDE 0.9% 1000ML 1,000 ML IV SCH (06:22)
[2019-11-19] MEDS: DOXYCYCLINE HYCLATE 100 MG in DEXTROSE 5% 100 ML IV SCH (06:23)
[2019-11-19] MEDS: CEFEPIME 2,000 MG in SYRINGE 7.5 ML IV SCH (06:23)
[2019-11-19 06:45] LABS: BUN Creatinine Ratio 13.5 (10-20); Calcium 8.5 mg/dl (8.5-10.1); Creatinine Clr Calc Pharmacy 111.3 ml/min; Est GFR (Non-African American) 111.3; Potassium 3.5 mmol/L (3.5-5.1)
[2019-11-19] MEDS: OXYMETAZOLINE 0.05% 30 ML BTL PRN (08:29)
[2019-11-19] MEDS: MULTIVITAMIN TAB PO SCH (08:30)
[2019-11-19] MEDS: PANTOprazole 40 MG TAB PO SCH (08:30)
[2019-11-19] MEDS: LORATADINE 10 MG TAB PO SCH (08:30)
[2019-11-19] MEDS: CITALOPRAM 20 MG TAB PO SCH (08:30)
--- NOTE | 2019-11-19 11:45 | Discharge Summary ---
Date of Service November 19, 2019 Admission HPI Per Admitting Provider 39-year-old female who presents to the ED for evaluation of cough and fever. Patient with history of breast cancer s/p recent bilateral mastectomy, currently receiving targeted therapy with Herceptin and Perjeta (last treatment on 11/15). Patient reports she has been feeling sick since Thanksgiving. She initially had a URI that had since resolved. She also underwent a CT scan with IV contrast and developed a drug rash. She was placed on a course of prednisone which she completed yesterday. She had her bilateral mastectomy on 11/06. Surgical drains remain in place. She was placed on prophylactic cephalexin postoperatively and still has a couple of days remaining of the prescription. She has no concerns of infection at her surgical site. There has been small amounts of serous and serosanguineous drainage in the JPs. A few days ago, patient reports she started developed URI symptoms again with rhinorrhea, congestion. Yesterday she developed eye drainage with a cough. She reports cough is intermittently productive. She was also running some fevers at home. She denies chest pain or shortness of breath. No lightheadedness, dizziness, diaphoresis, syncopal events. Denies abdominal pain, nausea, vomiting, diarrhea. No urinary symptoms. In the ED, patient is afebrile with stable BP. Heart rate was mildly elevated in the 110s. Labs show WBC 19.8K, mild hypokalemia potassium 3.1. CT chest shows scattered mild airspace opacities within the lungs and favor a mild infectious process. She received Tylenol, IVF, IV ceftriaxone. Admission Exam Per Admitting Provider General: Ill appearing, in no distress Eyes: PERRL, red conjunctivae with discharge, anicteric sclerae, EOM intact bilaterally ENMT: External ear and nose normal, oropharynx normal, no erythema or exudate., reports some tenderness on palpating maxillary regions of face Neck: Normal visual inspection, no tracheal deviation, no swelling noted Respiratory: Normal respiratory effort, no respiratory distress, lungs clear to auscultation, no crackles and no wheezes Cardiovascular: Pulse is RRR. S1 S2 no pedal edema Chest (Breasts): Chest: Clean mastectomy surgical sites. Port site on right anterior chest wall non tender, not fluctuant. FRANKIE drain on both sides from mastectomy sites (serosanguinous fluid in right drain and serous fluid in left drain) Gastrointestinal (Abdomen): Abdomen is not distended, soft, non-tender to palpation, no guarding, no palpable hepatosplenomegaly, normal bowel sounds Musculoskeletal: No cyanosis or clubbing, all extremities motor strength 5/5 Genitourinary: No CVA tenderness Skin: No rash noted on gross inspection Neurologic: Alert and oriented x 3, No focal weakness, sensation grossly intact Psychiatric: Euthymic affect, no depressed affect Lymphatic: No cervical lymphadenopathy Principal Diagnosis Acute maxillary sinusitis Community Acquired Pneumonia Discharge Exam General: Calm in no distress Eyes: PERRL, Normal conjunctiva, no discharge, anicteric sclerae, EOM intact bilaterally ENMT: External ear and nose normal, oropharynx normal, no erythema or exudate Neck: Normal visual inspection, no tracheal deviation, no swelling noted Respiratory: Normal respiratory effort, no respiratory distress, lungs clear to auscultation, no crackles and no wheezes Cardiovascular: Pulse is RRR. S1 S2 no pedal edema Chest (Breasts): Chest: Clean mastectomy surgical sites. Port site on right anterior chest wall non tender, not fluctuant. FRANKIE drain on both sides from mastectomy sites (serosanguinous fluid in right drain and serous fluid in left drain) Gastrointestinal (Abdomen): Abdomen is not distended, soft, non-tender to palpation, no guarding, no palpable hepatosplenomegaly, normal bowel sounds Musculoskeletal: No cyanosis or clubbing, all extremities motor strength 5/5 Genitourinary: No CVA tenderness Skin: No rash noted on gross inspection Neurologic: Alert and oriented x 3, No focal weakness, sensation grossly intact Psychiatric: Euthymic affect, no depressed affect Discharge Data Allergies Allergy/AdvReac Type Severity Reaction Status Date / Time naproxen Allergy Intermediate HIVES Verified 11/17/19 06:21 pseudoephedrine Allergy Intermediate agitation Verified 11/17/19 06:21 Iodinated Contrast Media Allergy Rash Verified 11/17/19 06:21 Consultations 11/17/19 06:58 ED Decision to Admit Stat Ordered Studies 11/17/19 06:17 CT chest wo con Stat 1. Scattered mild airspace opacities within the lungs which are new since chest CT November 08, 2019 and favor a mild infectious process. 2. Expected findings from recent bilateral mastectomies. No fluid collection. 3. No change in scattered tiny pulmonary nodules which are likely benign but can be assessed on subsequent exams to ensure stability. 11/17/19 08:53 CT sinus wo con Routine Visualized portions of the intracranial contents are unremarkable on this unenhanced exam. Mastoid air cells are clear. There is no fluid within the middle ears. Ossicles are intact. Orbits are unremarkable. Frontal sinuses are clear. There is moderate ethmoid sinus mucosal thickening. There is mild sphenoid sinus mucosal thickening. The sphenoethmoidal recesses are occluded. The bilateral ostiomeatal complexes are occluded. There are large air-fluid levels within the bilateral maxillary sinuses, left larger than right. There are bubbly secretions. No bony destruction is present. IMPRESSION: 1. Large air-fluid levels within the bilateral maxillary sinuses. These findings can indicate acute sinusitis. 2. Moderate ethmoid mucosal thickening with scattered secretions. 3. Occluded drainage pathways, as described above. Hospital Course (1) Acute sinusitis: (2) Sepsis: (3) Pneumonia: Fevers, chills, cough Sinus congestion CT chest showing scattered opacities. Facial CT acute maxillary sinusitis bilaterally and occluded drainage pathways. Leukocytosis of 19.8 on admission with tachycardia Initially started on Vanco and cefepime as patient was recently on antibiotics, recent surgeries, multiple drains in situ. Patient reported some flushing after receiving the vancomycin. MRSA swab is negative. Vancomycin discontinued. Blood cultures have been negative so far. Was managed with nasal afrin, loratadine and nasal lavage. Today, patient is feeling much better. Has remained afebrile. Leukocytosis have resolved. Discharged on augmentin and doxycycline to complete therapy Appointment made with ENT next week for follow up Follow up with PCP later this week Hemoglobin 9.7 today from 11.5 on admission [Was 10.5 on outpatient labs in 11/15/2019] This is likely dilutional as all cell lines dropped. (4) Hypokalemia: (5) Hypomagnesemia: Hypokalemia 3.1 and Hypomagnesiemia 1.4 on admission Repleted (6) Breast cancer: S/P bilateral mastectomy on 11/06 Currently receiving targeted therapy with Herceptin and progenitor, last dose on 11/15 Patient to follow-up with her oncologist on discharge Follow up with Surgeon for continued management of drain (7) Depression: Stable Continue citalopram (8) GERD (gastroesophageal reflux disease): Continue PPI Total Time Total Time Spent Total Time Spent (In Minutes): 35 Total Time Includes: Examination of the Patient, Discharge Planning and Medication Reconciliation Discharge Plan Discharge Items Patient Disposition: Home - Self-Care Reason For Visit: FEVER Discharge Diagnosis: Acute maxillary sinusitis Community Acquired Pneumonia Condition on Discharge: Good Activity: Resume your previous activity Non-emergency contact: Primary Care Provider Call non-emergency contact if: you have any medication questions and your symptoms worsen Follow-up/Referrals: Crys Morse MD [Primary Care Provider] - Odin Wright DO [Physician] - 11/23/19 9:45 am Humera Stahl MD [Surgeon] - 11/29/19 10:30 am Diet: Regular Addtl Attending Provider Instructions: Dr. Conde. You came to the hospital complaining of fevers, cough, sinus congestion, rhinorrhea, conjunctival discharge, malaise. You were evaluated and found to have bilateral maxillary sinusitis with some occluded drainage noted on Face CT, elevated white blood cell count. Chest CT also noted opacities suspicious for pneumonia. You were started on antibiotics and blood cultures have been negative. You were treated with Afrin spray, loratadine and your nasal lavage as well. Your symptoms improved. It is very important you follow up with the ENT Physician for further evaluation and treatment of your sinusitis. You are being discharged on augmentin and doxycycline to complete 7 day therapy. It was a pleasure taking care of you. Pending Studies at Discharge: No Stand-Alone Forms: [facility] [employer], Smoking Cessation Medications and DC Order Prescriptions: New amoxicillin-pot clavulanate [Augmentin] 875-125 mg tablet 1 tab PO BID 5 Days Qty: 10 RF: 0 doxycycline hyclate 100 mg tablet 100 mg PO BID 5 Days Qty: 10 RF: 0 Continued multivitamin Tablet 1 tab PO DAILY RF: 0 citalopram 20 mg Tablet 20 mg PO DAILY RF: 0 lorazepam 0.5 mg tablet 0.5 mg PO Q8 PRN (Reason: Anxiety) RF: 0 omeprazole 20 mg Capsule,Delayed Release(Dr/Ec) 20 mg PO DAILY RF: 0 loratadine [Claritin] 10 mg Tablet 10 mg PO DAILY RF: 0 loperamide 2 mg Capsule 2 mg PO QID PRN (Reason: Diarrhea) RF: 0 fluticasone propionate [Flonase Allergy Relief] 50 mcg/actuation Jennings,Suspension 2 spray INTRANASAL DAILY RF: 0 lidocaine-prilocaine 2.5-2.5 % Cream 1 applic topical UD PRN (Reason: port access) RF: 0 Discontinued cephalexin 500 mg Capsule 500 mg PO BID RF: 0 Discharge Orders: Discharge Order (Routine); Ordered 11/19/19 Ordered By: Nayla Vasquez Admission Data Admit Date/Time: 11/17/19 08:16 Attending Provider: Nayla Vasquez I. Admit Provider: Nayla Vasquez I. Primary Care Provider: Crys Morse Other Providers: Jose R Easley ; Clement Reynolds Other Interventions: Discharge Summary Assessment (RN) Last Done: 11/19/19 13:17 DC Date/Time DO NOT enter until pt leaves facility: 11/19/19 13:49
== END 2019-11-19 13:49 | disposition home or self-care (01) | DRG 871 ==
LOC: ED 03:59 → 2W 08:16 → SUATTDRO 08:16 → 2W 12:06